=== PATIENT | male | born 1985 | race Caucasian/White ===

== ENCOUNTER 2023-10-09 12:49 | Emergency (ER) | payer MEDICAID, SELFPAY ==
[2023-10-09 13:08] VITALS: BP 133/76; PULSE 61; RESP 16; TEMP 36.6; O2SAT 98; BMI 22.2
[2023-10-09 14:00] VITALS: BP 118/78; PULSE 57; RESP 18; TEMP 36.5; O2SAT 99
[2023-10-09] MEDS: Diphth,Pertus(ACell),Tet Adult 0.5 ML SYRINGE IM (15:07)
[2023-10-09] MEDS: Lidocaine HCl 1 % MPF 5 ML VIAL INFILTRATI (15:08)
--- NOTE | 2023-10-09 15:39 | ED_ITS ---
HPI - Wound/Laceration General Chief Complaint: Wound/Laceration Stated Complaint: Finger lac Time Seen by Provider: 10/09/23 13:14 Source: patient and RN notes reviewed Mode of arrival: ambulatory Limitations: no limitations History of Present Illness ED Provider: Judith Munguia PA-C HPI narrative: This is a 38-year-old male, with no known medical problems, who presents emergency department with complaints of laceration to his right thumb which occurred today. 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 He does report slight numbness and tingling to the tip of his thumb. He is left-handed. Denies taking any medications prior to his arrival. He is unsure when his last tetanus shot was administered to him. No other complaints or concerns at this time. Onset (ago): minute(s) Place: home Patient tetanus UTD: No Context: accidental Associated symptoms: pain and loss of feeling/numbness Related Data Previous Rx's ?Medication ?Instructions ?Recorded cephalexin 500 mg capsule 500 mg PO QID 5 days #20 caps 10/09/23 Allergies Allergy/AdvReac Type Severity Reaction Status Date / Time No Known Allergies Allergy Verified 10/09/23 13:11 [No Known Allergies*] Review of Systems Review of Systems: Yes all other systems are reviewed and are negative Constitutional: Constitutional: Reports as per [facility] Social History Social History Advance Directives: No Advance Directives Information Provided: No Physical Exam Vital Signs: Vital Signs: Last Vital Signs Temp 97.7 F 10/09/23 15:44 Pulse 57 10/09/23 15:44 Resp 18 10/09/23 15:44 BP 118/78 10/09/23 15:44 Pulse Ox 99 10/09/23 15:44 O2 Del Method Room Air 10/09/23 15:44 BMI result Body Mass Index 22.2 Const: General: cooperative, comfortable and no acute distress Orientation/consciousness: patient oriented x3 Limitations: no limitations HEENT: Head: Yes normal to inspection, Yes normocephalic and Yes atraumatic Ears: hearing grossly normal bilaterally General nose exam: Normal external nose present Face and sinus: Yes normal facial exam Mouth: Normal oral and palatal mucosa present, oropharynx normal and moist mucous membranes Throat: Yes posterior oropharynx normal Eyes: General: appearance normal, both eyes and all related structures Eyelids: Yes eyelids normal Conjunctivae: conjunctivae normal Sclerae: sclerae normal Pupils: Equal, round and reactive pupils present EOM: EOMs intact bilaterally Neck: Neck: Yes normal visual inspection, Yes full ROM and Yes no lymphadenopathy Lymphatic: no lymphadenopathy noted Chest: Chest palpation & inspection: normal inspection of the chest Resp: Effort & Inspection: normal respiratory effort and able to speak in complete sentences Auscultation: clear to auscultation bilaterally, no crackles, no rales, no rhonchi and no wheezes Cardio: Rate: regular rate Rhythm: regular rhythm Heart sounds: S1 normal heart sound present and S2 normal heart sound present GI: Inspection: Yes normal to inspection Skin: General skin exam: no rashes or lesions noted Trauma: no lacerations or abrasions Wounds: no wounds Neuro: General: patient oriented x3 and moves all extremities Cranial nerves: Yes Equal, round and reactive pupils present Extrem: Other: Right thumb, palmar aspect there is a 2cm partial thickness laceration noted, no active bleeding. No tendon involvement. Full range of motion of the digit, able to flex and extend as well as oppose thumb to all digits without difficulty. Strong radial pulse. General: Yes normal to inspection Right upper extremity: normal to inspection Left upper extremity: normal to inspection Right lower extremity: normal to inspection Left lower extremity: normal to inspection Medications Administered Discontinued Medications Generic Name Dose Route Start Last Admin Trade Name Freq PRN Reason Stop Dose Admin Bacitracin 1 appl 10/09/23 15:38 10/09/23 15:43 Bacitracin Oint 0.9 Gm Packet TOPICAL 10/09/23 15:39 1 appl ONCE ONE Administration Protocol Diphtheria/Tetanus/Acell Pertussis 0.5 ml 10/09/23 14:49 10/09/23 15:07 Diphth,Pertus(Acell),Tet Adult 0.5 Ml Syringe IM 10/09/23 14:50 0.5 ml .ONCE ONE Administration Lidocaine HCl 5 ml 10/09/23 14:49 10/09/23 15:08 Lidocaine Hcl 1 % Mpf 5 Ml Vial INFILTRATI 10/09/23 14:50 5 ml ONCE ONE Administration Medical Decision Making Medical Decision Making MDM Narrative: This is a 38-year-old male, with no known medical problems, who presents emergency department for evaluation of laceration to his right thumb. This was an accidental injury and was at home. On arrival, patient has a 2 cm partial- thickness laceration requiring suture repair. His tetanus is not up-to-date. He has some numbness and tingling to the tip of his finger however sensation is intact. Will require orthopedic follow-up for further evaluation. Digit was repaired using 450 nylon sutures, see procedure note for detail. Updated tetanus in department. Patient tolerated procedure well without any complications or concerns. Discharged on Keflex and given return precautions. Vital signs within normal limits. Patient stable for discharge Differential Diagnosis Differential Diagnoses: The differential diagnosis associated with the presentation includes Laceration, foreign body, abrasion, contusion Procedures Laceration Laceration 1: Site: hand Side (If applicable): right Size (cm): 2 Description: linear Depth: simple, single layer Local Anesthetic: lidocaine 1% Amount of anesthesia used (mL): 2 Pre-repair: wound explored, irrigated extensively and deep structures intact Skin layer closed with: nylon Size (cm): 5-0 Number of sutures: 4 Technique: simple, interrupted Discharge Plan Discharge Clinical Impression: Laceration Patient Disposition: Home, Self-Care Instructions: Care For Your Stitches (ED), Laceration (ED) Additional Instructions: Your seen in the emergency department after accidentally lacerating your right thumb. We placed 4 stitches in your right thumb. Please have these stitches removed in 10-14 days. You may return here or follow-up with your primary care physician. Take prescribed antibiotic as directed. Keep wound clean and dry. Change dressing daily. If dressing becomes saturated, please remove and r eapply. We updated your tetanus vaccination in the department today. If any new or worsening symptoms occur including but not limited to increased redness, swelling, drainage from the area, please return for re-evaluation. Because you were complaining of some numbness and tingling to the top of your thumb, please follow-up with orthopedics. Call to make an appointment. Prescriptions: New cephalexin 500 mg capsule 500 mg PO QID 5 Days Qty: 20 0RF Referrals: [facility] [place] [facility] [Provider Group] Interventions: ED Discharge Assessment Last Done: 10/09/23 15:44 Discharge Date/Time: 10/09/23 15:54 Print Language: Haitian
[2023-10-09] MEDS: Bacitracin Oint 0.9 GM PACKET 1 APPL TOPICAL (15:43)
--- NOTE | 2023-10-09 15:43 | PC.NURSE ---
laceration closed with 4 sutures, dsd with bacitracin placed. plan for discharge
[2023-10-09 15:44] VITALS: BP 118/78; PULSE 57; RESP 18; TEMP 36.5; O2SAT 99
== END 2023-10-09 15:54 | disposition home or self-care (01) ==
PROVIDERS: Emergency Provider Emergency Medicine
DX: S61.011A Laceration without foreign body of right thumb without damage to nail, initial encounter (principal); M79.641 Pain in right hand; W29.3XXA Contact with powered garden and outdoor hand tools and machinery, initial encounter; Y93.H2 Activity, gardening and landscaping; Y92.007 Garden or yard of unspecified non-institutional (private) residence as the place of occurrence of the external cause; Y99.8 Other external cause status; Z23 Encounter for immunization
CPT/HCPCS: 12041; 90471; 90715; 99283; 99284

== ENCOUNTER 2024-04-22 00:56 | Emergency (ER) | payer MEDICAID, SELFPAY ==
--- NOTE | ~2024-04-22 | CT_ITS ---
EXAMINATION: CT ABDOMEN AND PELVIS WITHOUT CONTRAST CLINICAL INFORMATION: Left flank pain. COMPARISON: None available. TECHNIQUE: Multidetector volumetric imaging was performed from the superior aspect of the liver through the pubic symphysis. Sagittal and coronal reformatted images were obtained on the technologist's workstation. This CT examination was performed using dose optimization techniques as appropriate, variously including the following: *Automated exposure control *Adjustment of mA and/or kV according to patient size (this includes techniques or standardized protocols for targeted exams where dose is matched to indication/reason for exam; i.e. extremities or head) *Use of iterative reconstruction technique DLP: 429 mGy-cm FINDINGS: LUNG BASES: -Lung bases are clear bilaterally. No effusions. -Heart size is normal. -GE junction is normal. LIVER, GALLBLADDER, AND BILIARY TREE: The liver is normal in size, shape, and attenuation. No focal hepatic lesion or biliary ductal dilatation is present. The gallbladder is unremarkable with no evidence of radiopaque gallstones, gallbladder wall thickening, or obvious pericholecystic inflammatory changes. PANCREAS: Unremarkable. SPLEEN: Unremarkable. ADRENAL GLANDS: Unremarkable. KIDNEYS AND URETERS: -Right Kidney: There are 3 nonobstructing tiny 2-3 mm calculi in the mid to inferior pole. There is no hydronephrosis or mass. There is a cyst in the upper pole measuring 1.8 cm. Hyperattenuating renal pyramids may suggest medullary nephrocalcinosis. -Left Kidney: There are 2 large calculi within the left mid to inferior left kidney, both oval in shape. The more anteroinferior measures 1.4 x 1.0 cm coronal plane, the more superolateral posterior measures 1.6 x 1.2 cm coronal plane. There is minimal calyceal dilatation/minimal hydronephrosis. Hyperattenuating renal pyramids may suggest medullary nephrocalcinosis. Ureters: Nondilated and normal in course and caliber. No obstructing abnormalities. BLADDER: Somewhat decompressed but normal in appearance. GASTROINTESTINAL TRACT: The stomach, duodenum, and small bowel are normal in appearance. The appendix is unremarkable. There is mild diverticulosis of the sigmoid colon. Colon is otherwise normal. No rectal abnormality. ABDOMINAL WALL: -No significant hernia is appreciated. -No masses or abnormal lymph nodes. LYMPH NODES: Normal. VASCULAR: Unremarkable. PELVIC VISCERA: Unremarkable. OSSEOUS STRUCTURES: -No suspicious lytic or blastic bone lesions. No acute findings. CT/CT abdomen pelvis wo IV con IMPRESSION: 1. There are 2 large possibly minimally obstructing calculi in the left mid to lower kidney calyces, larger more superolateral in the kidney measuring 1.6 x 1.2 cm, and the smaller anterolateral inferior measuring 1.4 x 1.0 cm. There is minimal dilatation of the left renal calyces without gross hydronephrosis. 2. There are 3 nonobstructing calculi in the right kidney mid to inferior pole, measuring 3 mm maximally. 3. Echogenic renal pyramids bilaterally suggesting medullary nephrocalcinosis. Differential includes medullary sponge kidney, renal tubular acidosis type I, hypervitaminosis D, and hypercalcemic states such as hyperparathyroidism. Less common etiologies to consider include sarcoidosis and renal papillary necrosis. 4. Additional ancillary findings as discussed in the body of the report. Electronically signed by: Zenon Israel MD 04/22/2024 09:56 AM [facility]ATAN
[2024-04-22 01:08] VITALS: BP 139/92; PULSE 67; RESP 18; TEMP 36.4; O2SAT 96; BMI 22.9
[2024-04-22] MEDS: Ondansetron ODT 4 MG TAB.RAPDIS TRANSLINGU (01:16)
[2024-04-22 01:45] LABS: Basophils Absolute Auto 0.1 X10*3/uL (0.0-0.2); Basophils Percent Auto 0.4 % (0-2); Eosinophils Percent Auto 0.2 % (0-4); Hematocrit 48.2 % (42.0-52.0); Hemoglobin 17.8 g/dl (14.0-18.0); Imm Gran Abs Auto 0.04 X10*3/uL (0.00-0.03); Imm Gran Pct Auto 0.3 % (0.0-0.4); Lymphocytes Absolute Auto 2.1 X10*3/uL (1.2-4.9); Lymphocytes Percent Auto 16.7 % (20-40); MANUAL DIFF FLAG NO; Mean Corpuscular HGB Conc 36.9 g/dl (31.0-36.0); Mean Corpuscular Hemoglobin 33.5 pg (27.0-33.0); Mean Corpuscular Volume 90.6 fL (80.0-98.0); Mean Platelet Volume 9.3 fL (9.4-12.4); Monocytes Absolute Auto 0.8 X10*3/uL (0.1-1.2); Monocytes Percent Auto 6.4 % (2-11); Neutrophils Absolute Auto 9.6 x10*3/uL (2.0-8.3); Platelet Count 278 X10*3/uL (160-400); Red Blood Count 5.32 X10*6/uL (4.60-5.80); Red Cell Distribution Width 12.2 % (11.0-16.0); White Blood Count 12.7 X10*3/uL (4.8-10.8)
[2024-04-22 02:12] LABS: Alanine Aminotransferase 40 U/L (0-40); Albumin Level 5.1 g/dL (3.5-5.0); Anion Gap 16 (12-20); Aspartate Amino Transferase 30 U/L (5-37); Bilirubin Total 1.5 mg/dL (0.0-1.0); Blood Urea Nitrogen 23 mg/dL (9-16); Calcium 9.7 mg/dL (8.4-10.2); Carbon Dioxide 21 mmol/L (22-29); Chloride 104 mmol/L (96-108); Creatinine Clr Calc Pharmacy 72.3; Estimated Glomerular Filt Rate 59; Glucose Random 121 mg/dL (60-115); Potassium 4.2 mmol/L (3.3-5.1); Sodium 137 mmol/L (135-145); Total Protein 8.3 g/dL (6.5-8.0)
[2024-04-22 02:52] LABS: Alkaline Phosphatase 136 U/L (39-117)
[2024-04-22 05:33] LABS: Appearance Urine Cloudy; Color Urine Dark Yellow; Glucose Urine UA Negative (Negative); Leukocyte Esterase Urine Trace (Negative); Nitrite Urine Negative (Negative); PH 5.5 (5.0-9.0); Specific Gravity - Urine >= 1.030 (1.005-1.025); UMIC TRIGGER UACC YES; Urine Blood Large (3+) (Negative); Urine Ketones 15 mg/dL (Negative); Urine Protein 100 (2+) mg/dL (Neg-Trace)
[2024-04-22 05:43] LABS: Bacteria Urine None Seen (None Seen); Other Crystals Urine Present; RBC Urine >20 /HPF (0-2); UACC Culture Trigger YES; WBC Clumps Urine Present
[2024-04-22 06:59] VITALS: BP 130/86; PULSE 70; RESP 18; TEMP 36.9; O2SAT 97
[2024-04-22] MEDS: 0.9 % Sodium Chloride 1,000 ML 999 ML IV (07:35)
[2024-04-22] MEDS: ondansetron HCL 4 MG/2 ML VIAL IVPUSH (07:39)
[2024-04-22] MEDS: Ketorolac Tromethamine 30 MG/ML VIAL IVPUSH (07:41)
--- NOTE | 2024-04-22 07:42 | PC.NURSE ---
no active vomiting states he feels nausea and only bile is left after vomting. IV access gained and medicated as charted.
--- NOTE | 2024-04-22 07:56 | ED_ITS ---
HPI - Abdominal Pain General Chief Complaint: Abdominal Pain Stated Complaint: nauseous, abd pain Time Seen by Provider: 04/22/24 06:44 Source: patient and RN notes reviewed Mode of arrival: ambulatory Limitations: no limitations History of Present Illness ED Provider: Judith Munguia PA-C HPI narrative: This is a 38-year-old male, who has no medical problems, who presents emergency department with complaints of left-sided flank pain x3 days. Patient states that he noticed this pain over the last several days, he does report some nausea, and vomiting. He does report that he has had difficulty with urination, states that he has been having to go into the shower to help push his urine out. He denies having history of similar symptoms in the past. No history of kidney stones. He is not sexually active, denies chance of STI. Denies any fevers, chills, chest pain, shortness of breath, abdominal pain, diarrhea, bloody or black stool. No other complaints or concerns at this time. MD elicited complaint: flank pain Pertinent past history: kidney stones Onset (ago): day(s) Pain Consistency: constant Location: L flank Severity: moderate Quality: aching Radiation: none Migration to: no migration Exacerbating factors: nothing Relieving factors: nothing Associated symptoms: denies other symptoms Related Data Previous Rx's ?Medication ?Instructions ?Recorded cephalexin 500 mg capsule 500 mg PO QID 5 days #20 caps 10/09/23 ketorolac 10 mg tablet 10 mg PO Q6H 3 days #12 tabs 04/22/24 ondansetron 4 mg disintegrating 4 mg PO Q6H #14 tabs 04/22/24 tablet sulfamethoxazole 800 1 tab PO BID 7 days #14 tabs 04/22/24 mg-trimethoprim 160 mg tablet (Bactrim DS) Allergies Allergy/AdvReac Type Severity Reaction Status Date / Time No Known Allergies Allergy Verified 04/22/24 01:08 [No Known Allergies*] Review of Systems Review of Systems Yes all other systems are reviewed and are negative Constitutional: Reports as per [facility] Social History Social History Smoked in Last 30 Days: Yes Use of substances other than those prescribed or required for medical reasons: No Advance Directives: No Do you have a plan to hurt others: No Plan Physical Exam ED Vital Signs: Vital Signs - 24 hr 04/22/24 01:08 04/22/24 06:59 Temperature 97.6 F 98.4 F Pulse Rate 67 70 Respiratory Rate 18 18 Blood Pressure 139/92 H 130/86 Pulse Oximetry 96 97 Oxygen Delivery Method Room Air Room Air BMI result Body Mass Index 22.9 Const General: cooperative, comfortable and no acute distress Orientation/consciousness: patient oriented x3 Limitations: no limitations HENMT Head: Yes normal to inspection, Yes normocephalic and Yes atraumatic Ears: hearing grossly normal bilaterally General nose exam: Normal external nose present Face and sinus: Yes normal facial exam Mouth: Normal oral and palatal mucosa present, oropharynx normal and moist mucous membranes Throat: Yes posterior oropharynx normal Eyes General: appearance normal, both eyes and all related structures Eyelids: Yes eyelids normal Conjunctivae: conjunctivae normal Sclerae: sclerae normal Pupils: Equal, round and reactive pupils present EOM: EOMs intact bilaterally Neck Neck: Yes normal visual inspection, Yes full ROM and Yes no lymphadenopathy Lymphatic: no lymphadenopathy noted Chest Chest palpation & inspection: normal inspection of the chest Resp Effort & Inspection: normal respiratory effort and able to speak in complete sentences Auscultation: clear to auscultation bilaterally, no crackles, no rales, no rhonchi and no wheezes Cardio Rate: regular rate Rhythm: regular rhythm Heart sounds: S1 normal heart sound present and S2 normal heart sound present GI Other: Abdomen is soft, with mild tenderness palpation along the left flank. No rebound or guarding. Abdomen is soft Inspection: Yes normal to inspection Back/Spine/Pelvis Other: Left CVA tenderness. Skin General skin exam: no rashes or lesions noted Trauma: no lacerations or abrasions Wounds: no wounds Neuro General: patient oriented x3 and moves all extremities Cranial nerves: Yes Equal, round and reactive pupils present Extrem General: Yes normal to inspection Right upper extremity: normal to inspection Left upper extremity: normal to inspection Right lower extremity: normal to inspection Left lower extremity: normal to inspection Course Reevaluation(s) Reevaluation #1: Patient re-evaluated, feeling much better after receiving Toradol and Zofran. CT abdomen returns revealing 2 large possibly minimally obstructing calculi in the left mid lower kidney calyces, larger more superior lateral in the kidney measuring 1.6 x 1.2 cm in the smaller anterolateral inferior measuring 1.4 x 1. There is also 3 nonobstructing calculi in the right kidney. He also has echogenic renal pyramids bilaterally suggesting medullary nephrocalcinosis Time: 10:49 Reevaluation #2: Dr. Duke reviewed a CT scan, recommending Bactrim twice a day for the next 7 days. Discharged on Toradol, Zofran, Bactrim, advised to follow-up with urology has there is no urgent intervention is needed at this time. He understands and agrees with plan. He is comfortable, asymptomatic at this time. Given strict return precautions. He understands and agrees with plan. Stable for discharge Time: 12:58 Medical Decision Making Medical Decision Making [facility] Narrative: This is a 38-year-old male who presents emergency department with complaints of left flank pain. On arrival, vital signs within normal limits. He was not evaluated until 7:20 a.m. due to long ER wait times. Labs were obtained prior to my assessment, he has mild leukocytosis, chemistry revealing creatinine of 1.35, no previous for comparison. A BUN of 23, total bili 1.5, alk phos 136, total protein 8.3, albumin 5.1. Urine with protein, large blood, leuk esterases, and rbc's. This does appear to be contaminated. Given atraumatic left flank pain, symptoms may be concerning for nephrolithiasis. CT abdomen and pelvis was ordered to rule out obstructive pathology. Plan: Labs, UA, CT abdomen and pelvis Differential Diagnosis Differential Diagnoses: The differential diagnosis associated with the presentation includes Pyelonephritis, nephrolithiasis, mass, UTI Admission/Observation Consideration of admission/observation: Escalation of care including admission/observation considered Lab Data [facility] Lab Attestation statement: I reviewed the patient's lab results. See course comment 04/22/24 01:32 04/22/24 01:32 Labs: Lab Results 04/22/24 04/22/24 Range/Units 01:32 05:26 WBC 12.7 H (4.8-10.8) X10*3/uL RBC 5.32 (4.60-5.80) X10*6/uL Hgb 17.8 (14.0-18.0) g/dl Hct 48.2 (42.0-52.0) % MCV 90.6 (80.0-98.0) fL MCH 33.5 H (27.0-33.0) pg MCHC 36.9 H (31.0-36.0) g/dl RDW 12.2 (11.0-16.0) % Plt Count 278 (160-400) X10*3/uL MPV 9.3 L (9.4-12.4) fL Immature Gran % (Auto) 0.3 (0.0-0.4) % Neut % (Auto) 76.0 H (45-73) % Lymph % (Auto) 16.7 L (20-40) % Gilchrist % (Auto) 6.4 (2-11) % Eos % (Auto) 0.2 (0-4) % Baso % (Auto) 0.4 (0-2) % Lymph # (Auto) 2.1 (1.2-4.9) X10*3/uL Gilchrist # (Auto) 0.8 (0.1-1.2) X10*3/uL Eos # (Auto) 0.0 (0.0-0.4) X10*3/uL Baso # (Auto) 0.1 (0.0-0.2) X10*3/uL Abs Immat Gran (auto) 0.04 H (0.00-0.03) X10*3/uL Absolute Neuts (auto) 9.6 H (2.0-8.3) x10*3/uL Absolute Nucleated RBC 0.000 (0.0-0.012) X10*3/uL Nucleated RBC % (auto) 0.0 (0.0-0.2) /100WBC Sodium 137 (135-145) mmol/L Potassium 4.2 (3.3-5.1) mmol/L Chloride 104 (96-108) mmol/L Carbon Dioxide 21 L (22-29) mmol/L Anion Gap 16 (12-20) BUN 23 H (9-16) mg/dL Creatinine 1.35 (0.5-1.4) mg/dL Estim Creat Clear Calc 72.3 Estimated GFR 59 Random Glucose 121 H (60-115) mg/dL Calcium 9.7 (8.4-10.2) mg/dL Total Bilirubin 1.5 H (0.0-1.0) mg/dL AST 30 (5-37) U/L ALT 40 (0-40) U/L Alkaline Phosphatase 136 H (39-117) U/L Total Protein 8.3 H (6.5-8.0) g/dL Albumin 5.1 H (3.5-5.0) g/dL Urine Color Dark Yellow Urine Appearance Cloudy Urine pH 5.5 (5.0-9.0) Ur Specific [place] >= 1.030 H (1.005-1.025) Urine Protein 100 (2+) H (Neg-Trace) mg/dL Urine Glucose (UA) Negative (Negative) mg/dL Urine Ketones 15 (Negative) mg/dL Urine Blood Large (3+) H (Negative) Urine Nitrite Negative (Negative) Ur Leukocyte Esterase Trace H (Negative) Urine RBC >20 H (0-2) /HPF Urine WBC 11-20 H (0-5) /HPF Urine WBC Clumps Present Ur Squamous Epith Cells 6-10 (0-2) /HPF Other Crystals Present Urine Bacteria None Seen (None Seen) Hyaline Casts 6-10 (0-2) /LPF Radiology Impression Discussion of test interpretation with radiology: I have reviewed the radiologist's reading. Radiologist Impression: FINDINGS: LUNG BASES: -Lung bases are clear bilaterally. No effusions. -Heart size is normal. -GE junction is normal. LIVER, GALLBLADDER, AND BILIARY TREE: The liver is normal in size, shape, and attenuation. No focal hepatic lesion or biliary ductal dilatation is present. The gallbladder is unremarkable with no evidence of radiopaque gallstones, gallbladder wall thickening, or obvious pericholecystic inflammatory changes. PANCREAS: Unremarkable. SPLEEN: Unremarkable. ADRENAL GLANDS: Unremarkable. KIDNEYS AND URETERS: -Right Kidney: There are 3 nonobstructing tiny 2-3 mm calculi in the mid to inferior pole. There is no hydronephrosis or mass. There is a cyst in the upper pole measuring 1.8 cm. Hyperattenuating renal pyramids may suggest medullary nephrocalcinosis. -Left Kidney: There are 2 large calculi within the left mid to inferior left kidney, both oval in shape. The more anteroinferior measures 1.4 x 1.0 cm coronal plane, the more superolateral posterior measures 1.6 x 1.2 cm coronal plane. There is minimal calyceal dilatation/minimal hydronephrosis. Hyperattenuating renal pyramids may suggest medullary nephrocalcinosis. Ureters: Nondilated and normal in course and caliber. No obstructing abnormalities. BLADDER: Somewhat decompressed but normal in appearance. GASTROINTESTINAL TRACT: The stomach, duodenum, and small bowel are normal in appearance. The appendix is unremarkable. There is mild diverticulosis of the sigmoid colon. Colon is otherwise normal. No rectal abnormality. ABDOMINAL WALL: -No significant hernia is appreciated. -No masses or abnormal lymph nodes. LYMPH NODES: Normal. VASCULAR: Unremarkable. PELVIC VISCERA: Unremarkable. OSSEOUS STRUCTURES: -No suspicious lytic or blastic bone lesions. No acute findings. CT/CT abdomen pelvis wo IV con IMPRESSION: 1. There are 2 large possibly minimally obstructing calculi in the left mid to lower kidney calyces, larger more superolateral in the kidney measuring 1.6 x 1.2 cm, and the smaller anterolateral inferior measuring 1.4 x 1.0 cm. There is minimal dilatation of the left renal calyces without gross hydronephrosis. 2. There are 3 nonobstructing calculi in the right kidney mid to inferior pole, measuring 3 mm maximally. 3. Echogenic renal pyramids bilaterally suggesting medullary nephrocalcinosis. Differential includes medullary sponge kidney, renal tubular acidosis type I, hypervitaminosis D, and hypercalcemic states such as hyperparathyroidism. Less common etiologies to consider include sarcoidosis and renal papillary necrosis. 4. Additional ancillary findings as discussed in the body of the report. Electronically signed by: Zenon Israel MD 04/22/2024 09:56 AM [facility] Dictated By: Zenon Israel MD Medications Administered Discontinued Medications Generic Name Dose Route Start Last Admin Trade Name Freq PRN Reason Stop Dose Admin Sodium Chloride 1,000 mls @ 999 mls/hr 04/22/24 07:20 04/22/24 08:56 Ns IV 04/22/24 08:20 Infused .Q1H1M ONE Infusion Ketorolac Tromethamine 30 mg 04/22/24 07:19 04/22/24 07:41 Ketorolac Tromethamine 30 Mg/Ml Vial IVPUSH 04/22/24 07:20 30 mg ONCE ONE Administration Ondansetron HCl 4 mg 04/22/24 01:14 04/22/24 01:16 Ondansetron Odt 4 Mg Tab.Rapdis TRANSLINGU 04/22/24 01:15 4 mg ONCE ONE Administration Ondansetron HCl 4 mg 04/22/24 07:19 04/22/24 07:39 Ondansetron Hcl 4 Mg/2 Ml Vial IVPUSH 04/22/24 07:20 4 mg ONCE ONE Administration Discharge Plan Discharge Clinical Impression: Calculus of kidney Patient Disposition: Still a Patient Instructions: Kidney Stones (ED) Additional Instructions: You were seen in the emergency department due to left flank pain. Your CT scan does show evidence of kidney stones as well as evidence of calcium within your kidneys. Given the location, no urgent intervention is required however you need to have close follow-up with Urology. Call today to make an appointment. We are putting you on an antibiotic, please take as prescribed. Finish the entire course even if your symptoms improve. I am also giving you a medication for nausea, take only as needed. I am also giving you a medication to help with pain, Toradol, this is a medication that you received in the emergency department today. If any new or worsening symptoms occur including but not limited to high fevers, severe rash, severe abdominal pain, chest pain, shortness for breath, inability to urinate, please seek emergent care. Do not mix Toradol with any NSAID medications like naproxen and ibuprofen or aspirin. You may take Tylenol as needed for pain in addition to the Toradol. Take Toradol every 4-6 hours, do not exceed 40 mg in 24 hours (40mg) Prescriptions: New sulfamethoxazole-trimethoprim [Bactrim DS] 800-160 mg tablet 1 tab PO BID 7 Days Qty: 14 0RF ondansetron 4 mg tablet,disintegrating 4 mg PO Q6H Qty: 14 0RF ketorolac 10 mg tablet 10 mg PO Q6H 3 Days Qty: 12 0RF No Action cephalexin 500 mg capsule 500 mg PO QID 5 Days Qty: 20 0RF Referrals: [facility] [place] [facility] [Provider Group] Stand Alone Forms: Work/School Release Print Language: Icelandic
[2024-04-22 13:57] VITALS: BP 130/86; PULSE 70; RESP 18; TEMP 36.9; O2SAT 97
== END 2024-04-22 13:57 | disposition home or self-care (01) ==
PROVIDERS: Emergency Provider Emergency Medicine; PCP Internal Medicine
DX: N20.0 Calculus of kidney (principal); R10.2 Pelvic and perineal pain; R11.2 Nausea with vomiting, unspecified; R33.9 Retention of urine, unspecified; D72.829 Elevated white blood cell count, unspecified
CPT/HCPCS: 36415; 74176; 80053; 81001; 85025; 87086; 96361; 96374; 96375; 99285; J1885; J2405

== ENCOUNTER → 2024-04-22 07:19 | Outpatient (BNV) | payer MEDICAID, SELFPAY | PROVIDERS: Emergency Provider Emergency Medicine; PCP Internal Medicine; Visit Provider Radiology Diagnostic Radiology | DX: R10.9 Unspecified abdominal pain (principal) | CPT/HCPCS: 74176 ==

== ENCOUNTER 2024-04-28 10:18 | Outpatient (AMB) | payer MEDICAID, SELFPAY ==
--- NOTE | 2024-04-27 20:09 | MHC.OFFVIS ---
Intake Visit Reasons: Kidney Stones Intake Note: Patient is present for KIDNEY STONES Urology Medication:NONE Antibiotic Allergy:NONE Blood Thinner:NONE Machine Set Up Required: No Allergies No Known Allergies [No Known Allergies*] Allergy (Verified 04/28/24 10:24) Medication List - Last Reconciled 04/28/24 by Jazmin Schwartz MD ketorolac 10 mg PO Q6H 3 days ondansetron 4 mg PO Q6H sulfamethoxazole-trimethoprim 800-160 mg (Bactrim DS) 1 tab PO BID 7 days HPI Comments Details: Rod Abdalla is a 38 y/o male who was in the ED with left flank pain. CT imaging was notable for large left renal stone punctate right renal stones. The patient was discharged on Bactrim for empirical treatment of pyelonephritis. Today he states the pain is resolved. I have discussed treatment options for kidney stones including ureteroscopy with laser lithotripsy, percutaneous nephrolithotomy and ESWL. Because the stone is large ESWL will be a stage procedure. The patient is here with his mother, Anna Marie, they agreed to start with ESWL. Also discussed metabolic workup to include 24 hour urine collection. Discussed the importance of hydration, increasing water intake. CTAP 04/22/24-- b/L kidney stones Review of Systems Const All systems reviewed & are unremarkable except as noted in HPI and below Reports no additional complaints Eyes Reports no additional complaints ENT Reports no additional complaints Card Reports no additional complaints Resp Reports no additional complaints GI Reports no additional complaints Reports as per HPI Musc Reports no additional complaints Skin/Breast Reports system reviewed and no additional complaints, except as documented Neuro Reports no additional complaints Psych Reports no additional complaints Endo Reports no additional complaints Nick/Lymph Reports no additional complaints Aller/Immun Reports no additional complaints Physical Exam Const General: healthy appearing, no acute distress and well developed Orientation/consciousness: patient oriented x3 HEENT Head: Yes normocephalic and Yes atraumatic Eyes Conjunctivae: conjunctivae normal Neck Neck: Yes normal visual inspection Chest Chest palpation & inspection: normal inspection of the chest Resp Effort & Inspection: normal respiratory effort Cardio Rate: regular rate GI Inspection: Yes normal to inspection Neuro General: patient oriented x3 Extrem General: No pedal edema Psych Appearance: grossly normal Affect: normal affect Results AMB Urinalysis, Automated UA Leukoctes 0 Zohreh/uL Last Edit by AUDIE Murphy on 04/28/24 10:40 UA Nitrite Negative Last Edit by Fátima Francis [facility] on 04/28/24 10:40 UA Urobilinogen 0.2 mg/dL Last Edit by [facility] on 04/28/24 10:40 UA Protein 15 mg/dL Last Edit by Fátima Francis [facility] on 04/28/24 10:40 UA pH 6.5 Last Edit by Fátima Francis [facility] on 04/28/24 10:40 UA Blood 25 Nico/uL Last Edit by Fátima Francis [facility] on 04/28/24 10:40 UA Specific [place] 1.020 Last Edit by Fátima Francis [facility] on 04/28/24 10:40 UA Ketone Negative Last Edit by Ftáima Francis [facility] on 04/28/24 10:40 UA Bilirubin 0 mg/dL Last Edit by Fátima Francis [facility] on 04/28/24 10:40 UA Glucose 0 mg/dL Last Edit by Fátima Francis [facility] on 04/28/24 10:40 Results Reviewed Results Reviewed: Date of Service: 04/22/24 CT ABDOMEN AND PELVIS WITHOUT CONTRAST CLINICAL INFORMATION: Left flank pain. COMPARISON: None available. TECHNIQUE: Multidetector volumetric imaging was performed from the superior aspect of the liver through the pubic symphysis. Sagittal and coronal reformatted images were obtained on the technologist's workstation. This CT examination was performed using dose optimization techniques as appropriate, variously including the following: *Automated exposure control *Adjustment of mA and/or kV according to patient size (this includes techniques or standardized protocols for targeted exams where dose is matched to indication/reason for exam; i.e. extremities or head) *Use of iterative reconstruction technique DLP: 429 mGy-cm FINDINGS: LUNG BASES: -Lung bases are clear bilaterally. No effusions. -Heart size is normal. -GE junction is normal. LIVER, GALLBLADDER, AND BILIARY TREE: The liver is normal in size, shape, and attenuation. No focal hepatic lesion or biliary ductal dilatation is present. The gallbladder is unremarkable with no evidence of radiopaque gallstones, gallbladder wall thickening, or obvious pericholecystic inflammatory changes. PANCREAS: Unremarkable. SPLEEN: Unremarkable. ADRENAL GLANDS: Unremarkable. KIDNEYS AND URETERS: -Right Kidney: There are 3 nonobstructing tiny 2-3 mm calculi in the mid to inferior pole. There is no hydronephrosis or mass. There is a cyst in the upper pole measuring 1.8 cm. Hyperattenuating renal pyramids may suggest medullary nephrocalcinosis. -Left Kidney: There are 2 large calculi within the left mid to inferior left kidney, both oval in shape. The more anteroinferior measures 1.4 x 1.0 cm coronal plane, the more superolateral posterior measures 1.6 x 1.2 cm coronal plane. There is minimal calyceal dilatation/minimal hydronephrosis. Hyperattenuating renal pyramids may suggest medullary nephrocalcinosis. Ureters: Nondilated and normal in course and caliber. No obstructing abnormalities. BLADDER: Somewhat decompressed but normal in appearance. GASTROINTESTINAL TRACT: The stomach, duodenum, and small bowel are normal in appearance. The appendix is unremarkable. There is mild diverticulosis of the sigmoid colon. Colon is otherwise normal. No rectal abnormality. ABDOMINAL WALL: -No significant hernia is appreciated. -No masses or abnormal lymph nodes. LYMPH NODES: Normal. VASCULAR: Unremarkable. PELVIC VISCERA: Unremarkable. OSSEOUS STRUCTURES: -No suspicious lytic or blastic bone lesions. No acute findings. IMPRESSION: 1. There are 2 large possibly minimally obstructing calculi in the left mid to lower kidney calyces, larger more superolateral in the kidney measuring 1.6 x 1.2 cm, and the smaller anterolateral inferior measuring 1.4 x 1.0 cm. There is minimal dilatation of the left renal calyces without gross hydronephrosis. 2. There are 3 nonobstructing calculi in the right kidney mid to inferior pole, measuring 3 mm maximally. 3. Echogenic renal pyramids bilaterally Assessment & Plan Assessment & Plan (1) Bilateral kidney stones: Code(s): N20.0 - Calculus of kidney Category: Medical Plan Left ESWL. Also discussed metabolic workup to include 24 hour urine collection. Orders: Orders AMB Urinalysis Automated Today Z13.9 - Encounter for screening, unspecified Patient Instructions: The patient had an opportunity to ask questions regarding treatment plan. The patient expressed understanding and agreement with the above treatment plan. The patient is aware they should contact our office by phone for worsening of their current condition or the appearance of new symptoms. Compliance is encouraged with any medications and followup testing that is ordered. It is a privilege to be allowed the opportunity to participate in the urologic care of your patient. If you have any questions or concerns regarding treatment for the above conditions please do not hesitate to contact me. The office telephone contact is [phone]. This note is constructed in part using voice recognition software. While every effort has been made to ensure accuracy ornamental machine operator errors may have been included. Yours sincerely, Jazmin Schwartz MD Coding Level of Care Code New Pt Level 4 (81276) Diagnoses Bilateral kidney stones N20.0
== END 2024-04-28 11:05 | disposition home or self-care (01) ==
PROVIDERS: PCP Internal Medicine; Visit Provider Urology
DX: N20.0 Calculus of kidney (principal); Z13.9 Encounter for screening, unspecified
CPT/HCPCS: 99204

== ENCOUNTER → 2024-04-28 10:18 | Outpatient (BNVA) | payer MEDICAID, SELFPAY | PROVIDERS: PCP Internal Medicine; Visit Provider Urology | DX: N20.0 Calculus of kidney (principal) | CPT/HCPCS: 81003; 99202 ==

== ENCOUNTER 2024-06-30 10:01 | Outpatient (REF) | payer MEDICAID, SELFPAY ==
--- OUTSIDE RECORDS SUMMARY | 2024-06-30 11:40 | XMS_ITS | Encounter Summary ---
Author Organization [employer] Address [address] [address] [place] [address] Care Team Providers Care Mechanical Design Engineer Facilities Name Role Phone Joan Barreto MD Primary Care Provider + Reason for Visit * Reason Comments New patient appointment Encounter Details Date Type Department Care Team ([facility] st Contact Info) Description 06/30/2024 9:15 AM EST Office Visit [facility] [address] [place], [place] [phone] Joan Barreto MD [address] [place], [place] [phone] Generalized anxiety disorder (Primary Dx); Panic disorder with agoraphobia; Elevated blood pressure reading Social History Tobacco Use Types Packs/Day Years Used Date Smoking Tobacco: Every Day Cigarettes 0.5 21.2 Started: 2003 Smokeless Tobacco: Never Alcohol Use Standard Drinks/Week Comments Not Currently 0 (1 standard drink = 0.6 oz pure alcohol) Hx heavy drinking before 21 yo then social drinking 1-2/y Housing Stability Answer Date Recorded What is your housing situation today? I have morales eugene 06/30/[address] you li ve. Do you have problems with any of the following? None of the above 06/30/2024 Food Insecurity Answer Date Recorded Within the past 12 months, y ou worried that your food would run out before you got money to buy more: Never True 06/30/2024 Within the past 12 months,th e food you bought just didn't last and you didn't have enough money to get more: Never True 09/2024 Transportation Answer Date Recorded In the past 12 months, has l ack of transportation kept you from medical appts, meetings, work or from getting things needed for daily living? No 06/30/2024 Utilities Answer Date Recorded In the past 12 months, has t he electric, gas, oil or water company threatened to shut off services in your home? No 06/30/2024 Depression Answer Date Recorded Patient Health Questionnaire-2 Score 0 06/30/2024 Internet Access Answer Date Recorded Internet Access Q1 No 06/30/2024 Internet Access Q2 I do not want or need it 09/2024 Education Answer Date Recorded What is the highest level of school you have completed or the highest degree you have received? GED or equivalent Sex and Gender Information Value Date Recorded Sex Assigned at Male 02/24/2022 10:30 AM EDT Legal Sex Male 10:30 AM EDT Gender Identity Other 02/24/2022 10:30 AM EDT Sexual Orientation Something else 02/24/2022 10 :30 AM EDT documented as of this encounter Last Filed Vital Signs Vital Sign Reading Time Taken Comments Blood Pressure 143/83 06/30/2024 9:24 AM EST Pulse 89 06/30/2024 9:24 AM EST Temperature 36.3 ??C (97.4 ??F) 06/30/2024 9:24 AM ES T Respiratory Rate 12 06/30/2024 9:24 AM EST Oxygen Saturation 97% 06/30/2024 9:24 AM EST Inhaled Oxygen Concentration - - Weight 69.6 kg (153 lb 6 oz) 06/30/2024 9:24 AM EST Height 172.7 cm (5' 8 ) 06/30/2024 9:24 AM EST Body Mass Index 23.32 06/30/2024 9:24 AM EST documented in this encounter Plan of Treatment Upcoming Encounters Date Type Department Care Team (Late st Contact Info) Description 09/09/2024 11:30 AM EDT Office Visit [facility] [address] [place] [phone] Joan Barreto MD [address] [place], [place] [phone] Scheduled Orders Name Type Priority Associated Diagnoses Orde r Schedule Comprehensive Metabolic Panel Lab Routine Elevated blood pressure reading Expected: 06/30/2024 (Approximate), Expires: 06/30/2025 HIV-1/2 Antigen and Antibodies, Fourth Generation, with Reflexes Lab Routine Generalized anxiety disorder Panic disorder with agoraphobia Expected: 06/30/2024 (Approximate), Expires: 06/30/2025 Lipid Panel with Reflex to Direct LDL Lab Routine Elevated blood pressure reading Expected: 06/30/2024 (Approximate), Expires: 06/30/2025 Hepatitis Panel, General Lab Routine Panic disorder with agoraphobia Expected: 06/30/2024 (Approximate), Expires: 06/30/2025 TSH with Reflex to Free T4 Lab Routine Panic disorder with agoraphobia Expected: 06/30/2024 (Approximate), Expires: 06/30/2025 T-SPOT??.TB Lab Routine Elevated blood pressure reading Expected: 06/30/2024 (Approximate), Expires: 06/30/2025 Syphilis Screen Lab Routine Panic disorder with agoraphobia Elevated blood pressure reading Expected: 06/30/2024 (Approximate), Expires: 06/30/2025 CBC auto differential Lab Routine Elevated blood pressure reading Expected: 06/30/2024 (Approximate), Expires: 06/30/2025 Vitamin B12/Folate, Serum Panel Lab Routine Panic disorder with agoraphobia Expected: 06/30/2024, Expires: 06/30/2025 documented as of this encounter Visit Diagnoses Diagnosis Generalized anxiety disorder- Primary Panic disorder with agoraphobia Agoraphobia with panic disorder Elevated blood pressure reading Elevated blood pressure reading without diagnosis of hypertension documented in this encounter Care Teams Mechanical Design Engineer Facilities Relationship Specialty Start Date End Date Joan Barreto MD [address] [place] [phone] PCP - General Internal Medicine 06/30/24 documented as of this encounter
--- OUTSIDE RECORDS SUMMARY | 2024-06-30 11:40 | XMS_ITS | Encounter Summary ---
Author Organization [employer] [facility] Address [address] [place] [address] [address] [place] [address] Care Team Providers Care Website Programmer Name Role Phone Unavailable Primary Care Provider Unavailabl e Reason for Visit * Reason Onset Date Comments Chart prep 06/28/2024 Encounter Details Date Type Department Care Team (Late st Contact Info) Description 06/28/[address] [phone] Evelyn Davenport [place] Chart prep Social History Tobacco Use Types Packs/Day Years Used Date Smoking Tobacco: Every Day Cigarettes 0.5 21.2 Started: 2003 Smokeless Tobacco: Never Education Answer Date Recorded What is the [...] AM EDT documented as of this encounter Miscellaneous Notes * Telephone Encounter - Evelyn Davenport MA - 06/28/2024 9:23 AM EST Chart Prep Labs: done Images: done Vaccines due: yes Referrals: N/A Screenings: N/A Overdue care gaps: SDOH, PHQ-9 documented in this encounter Plan of Treatment Upcoming Encounters Date Type Department Care Team (Late st Contact Info) Description 09/09/2024 11:30 AM EDT Office Visit [facility] [address] [place] [address] Joan Barreto MD [address] [place], [place] [phone] documented as of this encounter Visit Diagnoses Not on filedocumented in this encounter
--- OUTSIDE RECORDS SUMMARY | 2024-06-30 11:41 | XMS_ITS | Encounter Summary ---
Author Organization [employer] Address [address] [place] [address] Care Team Providers Care Brass Instrument Repair Technician Name Role Phone Joan Barreto MD Primary Care Provider + Encounter Details Date Type Department Care Team (Latest Contact Info) Description 06/30/2024 Travel Social History Tobacco Use Types Packs/Day Years [...] AM EDT documented as of this encounter Plan of Treatment Upcoming Encounters Date Type Department Care Team (Late st Contact Info) Description 09/09/2024 11:30 AM EDT Office Visit [facility] [address] [place], [place] [phone] Joan Barreto MD [address] [place] [phone] documented as of this encounter Visit Diagnoses Not on filedocumented in this encounter Care Teams Brass Instrument Repair Technician Relationship Specialty Start Date End Date Joan Barreto MD [address] [place] [phone] PCP - General Internal Medicine 06/30/24 documented as of this encounter
--- OUTSIDE RECORDS SUMMARY | 2024-06-30 11:41 | XMS_ITS | Clinical Summary ---
Author Organization [employer] Address [address] [place] [address] [address] [place] [address] Care Team Providers Care Chucking And Sawing Machine Operator Name Role Phone Joan Barreto MD Primary Care Provider + Allergies Active Allergy Reactions Criticality Noted Date [...] Encounters Date Type Department Care Team Description 06/30/2024 9:15 AM EST Office Visit [facility] [address] [place] [phone] Joan Barreto MD Generalized anxiety disorder (Primary Dx); Panic disorder with agoraphobia; Elevated blood pressure reading 06/30/2024 Travel 06/28/2024 Telephone [facility] [address] [place] [phone] Evelyn Davenport MA Chart prep 04/22/2024 Orders Only GENERIC EXTERNAL DATA DEPARTMENT Provider, Generic External Data 04/19/[address] [phone] Joan Barreto MD New pt appt from Last 3 Months Immunizations Name Administration Dates Next Due Influenza injectable quadrivalent preservative f ree 04/23/2020 Tdap 10/09/2023 Family History Medical History Relation Name Comments Seizures Brother No Known Problems Father Cerebral aneurysm Mother Relation Name Status Comments Brother Father Mother Social History Tobacco Use Types Packs/Day Years Used Date Smoking Tobacco: Every Day Cigarettes 0.5 21.2 Started: 2003 Smokeless Tobacco: Never Tobacco Cessation:Ready to Q uit: Not Asked; Counseling Given: Not Answered Alcohol Use Standard Drinks/Week Comments Not Currently [...] Mass Index 23.32 06/30/2024 9:24 AM EST Plan of Treatment Upcoming Encounters Date Type Department Care Team (Late st Contact Info) Description 09/09/2024 11:30 AM EDT Office Visit [facility] [address] [place], [place] [phone] Joan Barreto MD [address] [place] [address] Health Maintenance Due Date Last Done Comments HIV Screening 1986 Lipid Panel 1986 Alcohol/Substance Use Screening 1998 Family Planning (PISQ) 2001 Hepatitis C Screening 2004 Hepatitis A Vaccines (1 of 2 - Risk 2-dose series) 2005 Hepatitis B Vaccines (1 of 3 - 19+ 3-dose series) 2005 Pneumococcal Vaccine: Pediatrics (0 to 5 Years) and At-Risk Patients (6 to 49) Years) (1 of 2 - PCV) 2005 COVID-19 Vaccine ( - 2023-2 5 season) 2023 12/19/2021, 01/09/2021, 12/19/2020 Influenza Vaccine (#1) 2023 04/23/2020 Depression Screening 06/30/2025 06/30/2024, 06/30/2024 SDOH Screening 06/30/2025 06/30/2024 Tobacco Screening 06/30/2025 06/30/2024 DTaP/Tdap/Td Vaccines (2 - T d or [...] EST Narrative 04/22/2024 9:59 AM EST ? [facility] ?[address] ?[place] [address] ? CT Scan Report ? Signed ? Patient: Rod,Rm ?MR#: [id number] ? : 1985 ?Acct:[id number] ? Age/Sex: 38 / M ?ADM Date: 12/27/24 ? Loc: HO.ED ? Attending Dr: ? Ordering Physician: Judith Munguia ?? Date of Service: 04/22/24 ?? Procedure(s): CT abdomen pelvis wo IV con ?? Accession Number(s): [id number] ? cc: Joan Barreto MD; Judith Munguia ? Report Number: ?? [id number]: Total DLP = ??455.00 mGy-cm ?? EXAMINATION: [...] DD/ 0719 ? TD/TT: 04/22/24 0826 ? Pharmacy Innovation Assistant: ? Procedure Note Donotuseinterpreter, Image - 04/22/[address] [address] [address] Scan Report Signed Patient: Jayson Velasco#: [id number] : 1985Acct:[id number] Age/Sex: 38 / MADM Date: 04/22/24 Loc: HO.ED Attending Dr: Ordering Physician: Judith Munguia Date of Service: 04/22/24 Procedure(s): CT abdomen pelvis wo IV con Accession Number(s): [id number] cc: Joan Barreto MD; Judith Munguia Report Number: [id number]: Total DLP = 455.00 mGy-cm EXAMINATION: CT [...] by: Zenon Israel MD 04/22/2024 09:56 AM [facility] Dictated By: Zenon Israel MD Signed By: <Electronically signed by Zenon Israel MD in OV> 04/22/24 0956 DD/ 0719 TD/TT: 04/22/24 08 Pharmacy Innovation Assistant: [facility] External Provider IMG CT PROCEDURES Edited Result - Final * (ABNORMAL) Urinalysis, Complete, with Reflex to Culture (04/22/2024 5:26 AM EST) Color Urine Dark Yellow [facility] Appearance Urine Cloudy [facility] PH 5.5 5.0 - 9.0 [facility] Glucose Urine UA Negative Negative mg/dL [facility] Urine Blood Large (3+)(A) Negative [facility] Specific [place] - Urine >=1.030(H) 1.005 - 1.025 [facility] Urine Protein 100 (2+)(A) Neg-Trace mg/dL [facility] Urine Ketones 15 Negative mg/dL [facility] Nitrite Urine Negative Negative [facility] Leukocyte Esterase Urine Trace(A) Negative [facility] RBC Urine >20(A) 0 - 2 /HPF [facility] Urine WBC 11-20(A) 0 - 5 /HPF [facility] WBC CLUMPS, UR Present [facility] Urine Squamous Epithelial Cell 6-10 0 - 2 /HPF [facility] Other Crystals Urine Present [facility] Urine Bacteria None Seen None Seen [facility] Hyaline Casts, Urine 6-10 0 - 2 /LPF [facility] 04/22/2024 5:26 AM EST 04/22/2024 5:31 AM EST Narrative [facility] - 04/22/2024 5:43 AM EST Urine, Clean Catch Generic External Data Provider LAB URINE ORDERAB LES Final Result [facility] [address] [place] [address] [phone] * (ABNORMAL) CBC auto differential (04/22/2024 1:32 AM EST) White Blood Count 12.7(H) 4.8 - 10.8 X10*3/uL [facility] Red Blood Count 5.32 4.60 - 5.80 X10*6/uL [facility] Hemoglobin 17.8 14.0 - 18.0 g/dl [facility] Hematocrit 48.2 42.0 - 52.0 % [facility] Mean Corpuscular Volume 90.6 80.0 - 98.0 fL [facility] Mean Corpuscular Hemoglobin 33.5(H) 27.0 - 33.0 pg [facility] Mean Corpuscular HGB Conc 36.9(H) 31.0 - 36.0 g/dl [facility] Red Cell Distribution Width 12.2 11.0 - 16.0 % [facility] Platelet Count 278 160 - 400 X10*3/uL [facility] Mean Platelet Volume 9.3(L) 9.4 - 12.4 fL [facility] Neutrophils Percent Auto 76.0(H) 45 - 73 % [facility] Imm Gran Pct Auto 0.3 0.0 - 0.4 % [facility] Lymphocytes Percent Auto 16.7(L) 20 - 40 % [facility] Monocytes Percent Auto 6.4 2 - 11 % [facility] Eosinophils Percent Auto 0.2 0 - 4 % [facility] Basophils Percent Auto 0.4 0 - 2 % [facility] NRBC Pct Auto 0.0 0.0 - 0.2 /100WBC [facility] Neutrophils Absolute Auto 9.6(H) 2.0 - 8.3 x10*3/uL [facility] Imm Gran Abs Auto 0.04(H) 0.00 - 0.03 X10*3/uL [facility] Lymphocytes Absolute Auto 2.1 1.2 - 4.9 X10*3/uL [facility] Monocytes Absolute Auto 0.8 0.1 - 1.2 X10*3/uL [facility] Eosinophils Absolute Auto 0.0 0.0 - 0.4 X10*3/uL [facility] Basophils Absolute Auto 0.1 0.0 - 0.2 X10*3/uL [facility] NRBC Abs Auto 0.000 0.0 - 0.012 X10*3/uL [facility] 04/22/2024 1:32 AM EST 04/22/2024 1:51 AM EST us Generic External Data Provider LAB BLOOD ORDERAB LES Final Result [facility] [address] [place], [place] [phone] * (ABNORMAL) Comprehensive Metabolic Panel (04/22/2024 1:32 AM EST) Sodium 137 135 - 145 mmol/L [facility] Potassium 4.2 3.3 - 5.1 mmol/L [facility] Chloride 104 96 - 108 mmol/L [facility] Carbon Dioxide 21(L) 22 - 29 mmol/L [facility] Anion Gap 16 12 - 20 [facility] Urea Nitrogen (BUN) 23(H) 9 - 16 mg/dL [facility] Creatinine, Serum 1.35 0.5 - 1.4 mg/dL [facility] Creatinine Clr Calc Pharmacy 72.3 [facility] Comment:eGFR (calculated fro m the MDRD study equation) and eCrCl(calculated from the Cockcroft-Gault equation) are based ondifferent parameters and may not yield comparable results.If eCrCl result is absurd, please check patient'sheight/weight. Estimated Glomerular Filt Rate 59 [facility] Comment:Chronic Kidney Disea se: Estimated GFR < 60 mL/min/1.52n5Klcmun Kidney Disease: Estimated GFR < 15 mL/min/1.73m2 Glucose 121(H) 60 - 115 mg/dL [facility] Calcium 9.7 8.4 - 10.2 mg/dL [facility] Bilirubin, Total 1.5(H) 0.0 - 1.0 mg/dL [facility] Aspartate Amino Transferase 30 5 - 37 U/L [facility] Alanine Aminotransferase 40 0 - 40 U/L [facility] Total Protein 8.3(H) 6.5 - 8.0 g/dL [facility] Albumin Level 5.1(H) 3.5 - 5.0 g/dL [facility] Alkaline Phosphatase 136(H) 39 - 117 U/L [facility] 04/22/2024 1:32 AM EST 04/22/2024 1:51 AM EST Generic External Data Provider LAB BLOOD ORDERAB LES Final Result Performing Organization Address [facility]/ZIP Co de Phone Number [facility] [address] [place] [phone] * Culture, Urine, Routine (04/22/2024 12:00 AM EST) Urine Urine specimen obtained by clean catch procedure / Unknown 04/22/2024 04/22/2024 Comment:UACC Narrative [facility] - 04/23/2024 11:45 AM EST Urine Culture No growth. Specimen Source: Urine clean catch Generic External Data Provider LAB MICROBIOLOGY - GENERAL ORDERABLES Final Result Performing Organization Address City/[facility]/ZIP Co de Phone Number [facility] [address] [place] [phone] from Last 3 Months Insurance [facility] [employer] C[facility] [address] [address] Care Teams Chucking And Sawing Machine Operator Relationship Specialty Start Date End Date Joan Barreto MD [address] [place] [phone] PCP - General Internal Medicine 06/30/24
[2024-06-30 11:57] LABS: MANUAL DIFF FLAG NO
[2024-06-30 12:03] LABS: Basophils Absolute Auto 0.1 X10*3/uL (0.0-0.2); Basophils Percent Auto 0.9 % (0-2); Eosinophils Absolute Auto 0.2 X10*3/uL (0.0-0.4); Eosinophils Percent Auto 2.3 % (0-4); Hematocrit 41.8 % (42.0-52.0); Hemoglobin 15.1 g/dl (14.0-18.0); Imm Gran Abs Auto 0.02 X10*3/uL (0.00-0.03); Imm Gran Pct Auto 0.2 % (0.0-0.4); Lymphocytes Absolute Auto 2.4 X10*3/uL (1.2-4.9); Lymphocytes Percent Auto 26.2 % (20-40); Mean Corpuscular HGB Conc 36.1 g/dl (31.0-36.0); Mean Corpuscular Hemoglobin 33.7 pg (27.0-33.0); Mean Corpuscular Volume 93.3 fL (80.0-98.0); Mean Platelet Volume 9.6 fL (9.4-12.4); Monocytes Absolute Auto 0.6 X10*3/uL (0.1-1.2); Monocytes Percent Auto 6.8 % (2-11); Neutrophils Absolute Auto 5.8 x10*3/uL (2.0-8.3); Neutrophils Percent Auto 63.6 % (45-73); Platelet Count 251 X10*3/uL (160-400); Red Blood Count 4.48 X10*6/uL (4.60-5.80); Red Cell Distribution Width 12.7 % (11.0-16.0); White Blood Count 9.1 X10*3/uL (4.8-10.8)
[2024-06-30 12:30] LABS: Alanine Aminotransferase 45 U/L (0-40); Albumin Level 4.2 g/dL (3.5-5.0); Alkaline Phosphatase 122 U/L (39-117); Anion Gap 10 (12-20); Aspartate Amino Transferase 31 U/L (5-37); Bilirubin Total 0.7 mg/dL (0.0-1.0); Blood Urea Nitrogen 14 mg/dL (9-16); Calcium 9.1 mg/dL (8.4-10.2); Carbon Dioxide 24 mmol/L (22-29); Chloride 110 mmol/L (96-108); Cholesterol 190 mg/dL (<200); Estimated Glomerular Filt Rate > 60; Glucose Random 90 mg/dL (60-115); HDL Cholesterol 45 mg/dL (>40); LDL Cholesterol Calculated 134 mg/dL (<100); Potassium 4.1 mmol/L (3.3-5.1); Sodium 140 mmol/L (135-145); Total Protein 7.1 g/dL (6.5-8.0); Triglycerides 56 mg/dL (<150)
[2024-06-30 12:48] LABS: TSH reflex Free T4 0.92 uIU/mL (0.32-4.0)
[2024-06-30 12:54] LABS: Reflex LDLD? No
[2024-06-30 13:11] LABS: Folate 7.2 ng/mL (> or = 4.0); Vitamin B12 1203 pg/mL (200-900)
[2024-07-01 09:00] LABS: HBS Num1 > 1000.00 mIU/mL (0-7.99); HBc Num1 0.11 S/CO (0.00-0.79); HBsAGNum1 0.43 S/CO (0.00-0.99); HIV AB/AG Nonreactive (Nonreactive); HIV Num 1 0.05 S/CO (0.00-0.99); Hepatitis A Antibody IgM 0.16 Index (0-0.79); Hepatitis B Core Antibody Nonreactive (Nonreactive); Hepatitis B Surface Antigen Negative (Negative); ~HepC Num1 0.24 S/CO (0.00-0.79); ~Hepatitis A Antibody IgM Nonreactive (Nonreactive); ~Hepatitis B Surface Antibody REACTIVE (Nonreactive); ~Hepatitis C Antibody Nonreactive (Nonreactive)
[2024-07-01 09:15] LABS: Syphilis Screen Nonreactive (Nonreactive)
[2024-07-03 16:47] LABS: TS Negative Control Passed; TS Panel A 0; TS Panel B 0; TS Positive Control Passed; TSpotTB Negative (Negative)
== END 2024-06-30 10:02 | disposition home or self-care (01) ==
LOC: HO.HHCL 10:01
PROVIDERS: Visit Provider Internal Medicine
DX: R03.0 Elevated blood-pressure reading, without diagnosis of hypertension (principal); F41.1 Generalized anxiety disorder; F40.01 Agoraphobia with panic disorder
CPT/HCPCS: 36415; 80053; 80061; 82607; 82746; 84443; 85025; 86481; 86704; 86706; 86709; 86780; 86803; 87340; 87389

== ENCOUNTER 2024-08-31 07:17 | Day surgery (SDC) | payer MEDICAID, SELFPAY ==
--- OUTSIDE RECORDS SUMMARY | 2024-06-21 16:46 | XMS_ITS | Clinical Summary ---
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 14 tablet 12/10/2023 Active acetaminophen (Tylenol) 500 MG tablet Take 2 tablets (1,000 mg) by mouth every 6 (six) hours if needed for moderate pain or fever for up to 25 doses. 30 tablet 12/10/2023 Active ibuprofen 400 MG tablet Take 1 tablet (400 mg) by mouth every 6 (six) hours if needed for moderate pain or fever for up to 30 doses. 30 tablet 12/10/2023 Active Active Problems Problem Noted Date Diagnosed Date Tobacco dependence 12/10/2023 Encounters Date Type Department Care Team Description 04/22/2024 Orders Only GENERIC EXTERNAL DATA DEPARTMENT Provider, Generic External Data 04/19/2024 Telephone [facility] [address] [place] [address] [phone] Joan Barreto MD New pt appt from Last 3 Months Immunizations Name Administration Dates Next Due Influenza injectable quadrivalent preservative f ree 04/23/2020 Tdap 10/09/2023 Social History Tobacco Use Types Packs/Day Years Used Date Smoking Tobacco: Every Day Cigarettes 0.5 21.2 Started: 2003 Smokeless Tobacco: Never Tobacco Cessation:Ready to Q uit: Not Asked; Counseling Given: Not Answered Education Answer Date Recorded What is the highest level of school you have completed or the highest degree you have received? GED or equivalent Sex and Gender Information Value Date Recorded Sex Assigned at Male 02/24/2022 10:30 AM EDT Legal Sex Male 10:30 AM EDT Gender Identity Other 02/24/2022 10:30 AM EDT Sexual Orientation Something else 02/24/2022 10 :30 AM EDT Last Filed Vital Signs Vital Sign Reading Time Taken Comments Blood Pressure 134/81 12/10/2023 12:45 PM EDT Pulse 65 12/10/2023 12:45 PM EDT Temperature 36.2 ??C (97.1 ??F) 12/10/2023 1 2:45 PM EDT Respiratory Rate 17 12/10/2023 12:4 5 PM EDT Oxygen Saturation 98% 12/10/2023 12: 45 PM EDT Inhaled Oxygen Concentration - - Weight 72.9 kg (160 lb 12.8 oz) 024 12:45 PM EDT Height 172.6 cm (5' 7.95 ) 04/23/2020 1 2:12 AM EST Body Mass Index 24.48 04/23/2020 12:12 AM EST Plan of Treatment Upcoming Encounters Date Type Department Care Team (Late st Contact Info) Description 06/30/2024 9:15 AM EST Office Visit [facility] [address] [place], [place] [phone] Joan Barreto MD [address] [place] [address] Health Maintenance Due Date Last Done Comments Depression Screening 1986 HIV Screening 1986 Lipid Panel 1986 SDOH Screening 1986 Alcohol/Substance Use Screening 1998 Family Planning (PISQ) 2001 Hepatitis C Screening 2004 Hepatitis A Vaccines (1 of 2 - Risk 2-dose series) 2005 Hepatitis B Vaccines (1 of 3 - 19+ 3-dose series) 2005 Pneumococcal Vaccine: Pediatrics (0 to 5 Years) and At-Risk Patients (6 to 49) Years) (1 of 2 - PCV) 2005 COVID-19 Vaccine (2023-2 5 season) 2023 12/19/2021, 01/09/2021, 12/19/2020 Influenza Vaccine (#1) 2023 04/23/2020 Tobacco Screening 12/09/2024 12/10/2023 DTaP/Tdap/Td Vaccines (2 - T d or Tdap) 10/08/2033 10/09/2023 Zoster Vaccines (1 of 2) 2036 RSV Patients and Patients Aged 60 years or older (1 - 1-dose 75+ series) 2061 HIB Vaccines Aged Out No longer eligi ble based on patient's age to complete this topic HPV Vaccines Aged Out No longer eligi ble based on patient's age to complete this topic IPV Vaccines Aged Out No longer eligi ble based on patient's age to complete this topic Meningococcal Vaccine Aged Out No merlin alfonso eligible based on patient's age to complete this topic RSV under 20 months Aged Out No longe r eligible based on patient's age to complete this topic Rotavirus Vaccines Aged Out No longer eligible based on patient's age to complete this topic Procedures Procedure Name Priority Date/Time Associated Diagnosis Comments CT ABDOMEN PELVIS WO CONTRAST Routine 04/22/2024 7:19 AM EST URINALYSIS, COMPLETE, WITH REFLEX TO CULTURE Routine 04/22/2024 5:26 AM EST COMPREHENSIVE METABOLIC PANEL Routine 04/22/2024 1:32 AM EST CBC WITH AUTO DIFFERENTIAL Routine 04/22/2024 1:32 AM EST CULTURE, URINE, ROUTINE Routine 04/22/2024 12:00 AM EST from Last 3 Months Results * CT Abdomen Pelvis w/o Contrast (04/22/2024 7:19 AM EST) Anatomical Region Laterality Modality Body, Pelvis, Abdomen Computed T omography 04/22/2024 7:19 AM EST Narrative 04/22/2024 9:59 AM EST ? [facility] ?[address] ?[place] [address] ? CT Scan Report ? Signed ? Patient: Rod,Rm ?MR#: [id number] ? : 1985 ?Acct:[id number] ? Age/Sex: 38 / M ?ADM Date: 04/22/24 ? Loc: HO.ED ? Attending Dr: ? Ordering Physician: Judith Munguia ?? Date of Service: 04/22/24 ?? Procedure(s): CT abdomen pelvis wo IV con ?? Accession Number(s): [id number] ? cc: Joan Barreto MD; Judith Munguia ? Report Number: ?? [id number]: Total DLP = ??455.00 mGy-cm ?? EXAMINATION: ?? CT ABDOMEN AND PELVIS WITHOUT CONTRAST ? CLINICAL INFORMATION: ?? Left flank pain. ? COMPARISON: ?? None available. ? TECHNIQUE: ?? Multidetector volumetric imaging was performed from the superior aspect ?? of the liver through the pubic symphysis. Sagittal and coronal ?? reformatted images were obtained on the technologist's workstation. ? This CT examination was performed using dose optimization techniques as ?? appropriate, variously including the following: ?? *Automated exposure control ?? *Adjustment of mA and/or kV according to patient size (this includes ?? techniques or standardized protocols for targeted exams where dose is ?? matched to indication/reason for exam; i.e. extremities or head) ?? *Use of iterative reconstruction technique ? DLP: ?? 429 mGy-cm ? FINDINGS: ?? LUNG BASES: ?? -Lung bases are clear bilaterally. No effusions. ?? -Heart size is normal. ?? -GE junction is normal. ? LIVER, GALLBLADDER, AND BILIARY TREE: The liver is normal in size, ?? shape, and attenuation. No focal hepatic lesion or biliary ductal ?? dilatation is present. The gallbladder is unremarkable with no evidence ?? of radiopaque gallstones, gallbladder wall thickening, or obvious ?? pericholecystic inflammatory changes. ? PANCREAS: Unremarkable. ? SPLEEN: Unremarkable. ? ADRENAL GLANDS: Unremarkable. ? KIDNEYS AND URETERS: ?? -Right Kidney: There are 3 nonobstructing tiny 2-3 mm calculi in the ?? mid to inferior pole. There is no hydronephrosis or mass. There is a ?? cyst in the upper pole measuring 1.8 cm. Hyperattenuating renal ?? pyramids may suggest medullary nephrocalcinosis. ? -Left Kidney: ??There are 2 large calculi within the left mid to ?? inferior left kidney, both oval in shape. The more anteroinferior ?? measures 1.4 x 1.0 cm coronal plane, the more superolateral posterior ?? measures 1.6 x 1.2 cm coronal plane. There is minimal calyceal ?? dilatation/minimal hydronephrosis. Hyperattenuating renal pyramids may ?? suggest medullary nephrocalcinosis. ? Ureters: Nondilated and normal in course and caliber. No obstructing ?? abnormalities. ? BLADDER: Somewhat decompressed but normal in appearance. ? GASTROINTESTINAL TRACT: The stomach, duodenum, and small bowel are ?? normal in appearance. The appendix is unremarkable. ??There is mild ?? diverticulosis of the sigmoid colon. Colon is otherwise normal. No ?? rectal abnormality. ? ABDOMINAL WALL: ?? -No significant hernia is appreciated. ? -No masses or abnormal lymph nodes. ? LYMPH NODES: Normal. ? VASCULAR: Unremarkable. ? PELVIC VISCERA: Unremarkable. ? OSSEOUS STRUCTURES: ?? -No suspicious lytic or blastic bone lesions. No acute findings. ? CT/CT abdomen pelvis wo IV con ?? IMPRESSION: ?? 1. There are 2 large possibly minimally obstructing calculi in the left ?? mid to lower kidney calyces, larger more superolateral in the kidney ?? measuring 1.6 x 1.2 cm, and the smaller anterolateral inferior ?? measuring 1.4 x 1.0 cm. There is minimal dilatation of the left renal ?? calyces without gross hydronephrosis. ?? 2. There are 3 nonobstructing calculi in the right kidney mid to ?? inferior pole, measuring 3 mm maximally. ?? 3. Echogenic renal pyramids bilaterally suggesting medullary ?? nephrocalcinosis. Differential includes medullary sponge kidney, renal ?? tubular acidosis type I, hypervitaminosis D, and hypercalcemic states ?? such as hyperparathyroidism. Less common etiologies to consider include ?? sarcoidosis and renal papillary necrosis. ?? 4. Additional ancillary findings as discussed in the body of the report. ? Electronically signed by: ??Zenon Israel MD ??04/22/2024 09:56 AM EST RP ? Dictated By: ?Zenon Israel MD ? Signed By: ?<Electronically signed by Zenon Israel MD in OV> ?04/22/24 0956 ? DD/ 0719 ? TD/TT: 04/22/24 0826 ? Marine Painter: ? Procedure Note Donotuseinterpreter, Image - 04/22/[address] [place] [address] [address] Scan Report Signed Patient: Jayson Velasco#: [id number] : 1985Acct:[id number] Age/Sex: 38 / MADM Date: 04/22/24 Loc: HO.ED Attending Dr: Ordering Physician: Judith Munguia Date of Service: 04/22/24 Procedure(s): CT abdomen pelvis wo IV con Accession Number(s): [id number] cc: Joan Barreto MD; Judith Munguia Report Number: [id number]: Total DLP = 455.00 mGy-cm EXAMINATION: CT ABDOMEN AND PELVIS WITHOUT CONTRAST CLINICAL INFORMATION: Left flank pain. COMPARISON: None available. TECHNIQUE: Multidetector volumetric imaging was performed from the superior aspect of the liver through the pubic symphysis. Sagittal and coronal reformatted images were obtained on the technologist's workstation. This CT examination was performed using dose optimization techniques as appropriate, variously including the following: *Automated exposure control *Adjustment of mA and/or kV according to patient size (this includes techniques or standardized protocols for targeted exams where dose is matched to indication/reason for exam; i.e. extremities or head) *Use of iterative reconstruction technique DLP: 429 mGy-cm FINDINGS: LUNG BASES: -Lung bases are clear bilaterally. No effusions. -Heart size is normal. -GE junction is normal. LIVER, GALLBLADDER, AND BILIARY TREE: The liver is normal in size, shape, and attenuation. No focal hepatic lesion or biliary ductal dilatation is present. The gallbladder is unremarkable with no evidence of radiopaque gallstones, gallbladder wall thickening, or obvious pericholecystic inflammatory changes. PANCREAS: Unremarkable. SPLEEN: Unremarkable. ADRENAL GLANDS: Unremarkable. KIDNEYS AND URETERS: -Right Kidney: There are 3 nonobstructing tiny 2-3 mm calculi in the mid to inferior pole. There is no hydronephrosis or mass. There is a cyst in the upper pole measuring 1.8 cm. Hyperattenuating renal pyramids may suggest medullary nephrocalcinosis. -Left Kidney: There are 2 large calculi within the left mid to inferior left kidney, both oval in shape. The more anteroinferior measures 1.4 x 1.0 cm coronal plane, the more superolateral posterior measures 1.6 x 1.2 cm coronal plane. There is minimal calyceal dilatation/minimal hydronephrosis. Hyperattenuating renal pyramids may suggest medullary nephrocalcinosis. Ureters: Nondilated and normal in course and caliber. No obstructing abnormalities. BLADDER: Somewhat decompressed but normal in appearance. GASTROINTESTINAL TRACT: The stomach, duodenum, and small bowel are normal in appearance. The appendix is unremarkable. There is mild diverticulosis of the sigmoid colon. Colon is otherwise normal. No rectal abnormality. ABDOMINAL WALL: -No significant hernia is appreciated. -No masses or abnormal lymph nodes. LYMPH NODES: Normal. VASCULAR: Unremarkable. PELVIC VISCERA: Unremarkable. OSSEOUS STRUCTURES: -No suspicious lytic or blastic bone lesions. No acute findings. CT/CT abdomen pelvis wo IV con IMPRESSION: 1. There are 2 large possibly minimally obstructing calculi in the left mid to lower kidney calyces, larger more superolateral in the kidney measuring 1.6 x 1.2 cm, and the smaller anterolateral inferior measuring 1.4 x 1.0 cm. There is minimal dilatation of the left renal calyces without gross hydronephrosis. 2. There are 3 nonobstructing calculi in the right kidney mid to inferior pole, measuring 3 mm maximally. 3. Echogenic renal pyramids bilaterally suggesting medullary nephrocalcinosis. Differential includes medullary sponge kidney, renal tubular acidosis type I, hypervitaminosis D, and hypercalcemic states such as hyperparathyroidism. Less common etiologies to consider include sarcoidosis and renal papillary necrosis. 4. Additional ancillary findings as discussed in the body of the report. Electronically signed by: Zenon Israel MD 04/22/2024 09:56 AM EST Dictated By: Zenon Israel MD Signed By: <Electronically signed by Zenon Israel MD in OV> 04/22/24 0956 DD/ TD/TT: 04/22/24 08 Marine Painter: us [facility] External Provider IMG CT PROCEDURES Edited Result - Final * (ABNORMAL) Urinalysis, Complete, with Reflex to Culture (04/22/2024 5:26 AM EST) Color Urine Dark Yellow [facility] Appearance Urine Cloudy [facility] PH 5.5 5.0 - 9.0 [facility] Glucose Urine UA Negative Negative mg/dL [facility] Urine Blood Large (3+)(A) Negative [facility] Specific [place] - Urine >=1.030(H) 1.005 - 1.025 [facility] Urine Protein 100 (2+)(A) Neg-Trace mg/dL [facility] Urine Ketones 15 Negative mg/dL [facility] Nitrite Urine Negative Negative [facility] Leukocyte Esterase Urine Trace(A) Negative [facility] RBC Urine >20(A) 0 - 2 /HPF [facility] Urine WBC 11-20(A) 0 - 5 /HPF [facility] WBC [place], UR Present [facility] Urine Squamous Epithelial Cell 6-10 0 - 2 /HPF [facility] Other Crystals Urine Present [facility] Urine Bacteria None Seen None Seen [facility] Hyaline Casts, Urine 6-10 0 - 2 /LPF [facility] 04/22/2024 5:26 AM EST 04/22/2024 5:31 AM EST Narrative [facility] - 04/22/2024 5:43 AM EST Urine, Clean Catch Generic External Data Provider LAB URINE ORDERAB LES Final Result [facility] [address] [place], [place] [phone] * (ABNORMAL) CBC auto differential (04/22/2024 1:32 AM EST) White Blood Count 12.7(H) 4.8 - 10.8 X10*3/uL [facility] Red Blood Count 5.32 4.60 - 5.80 X10*6/uL [facility] Hemoglobin 17.8 14.0 - 18.0 g/dl [facility] Hematocrit 48.2 42.0 - 52.0 % [facility] Mean Corpuscular Volume 90.6 80.0 - 98.0 fL [facility] Mean Corpuscular Hemoglobin 33.5(H) 27.0 - 33.0 pg [facility] Mean Corpuscular HGB Conc 36.9(H) 31.0 - 36.0 g/dl [facility] Red Cell Distribution Width 12.2 11.0 - 16.0 % [facility] Platelet Count 278 160 - 400 X10*3/uL [facility] Mean Platelet Volume 9.3(L) 9.4 - 12.4 fL [facility] Neutrophils Percent Auto 76.0(H) 45 - 73 % [facility] Imm Gran Pct Auto 0.3 0.0 - 0.4 % [facility] Lymphocytes Percent Auto 16.7(L) 20 - 40 % [facility] Monocytes Percent Auto 6.4 2 - 11 % [facility] Eosinophils Percent Auto 0.2 0 - 4 % [facility] Basophils Percent Auto 0.4 0 - 2 % [facility] NRBC Pct Auto 0.0 0.0 - 0.2 /100WBC [facility] Neutrophils Absolute Auto 9.6(H) 2.0 - 8.3 x10*3/uL [facility] Imm Gran Abs Auto 0.04(H) 0.00 - 0.03 X10*3/uL [facility] Lymphocytes Absolute Auto 2.1 1.2 - 4.9 X10*3/uL [facility] Monocytes Absolute Auto 0.8 0.1 - 1.2 X10*3/uL [facility] Eosinophils Absolute Auto 0.0 0.0 - 0.4 X10*3/uL [facility] Basophils Absolute Auto 0.1 0.0 - 0.2 X10*3/uL [facility] NRBC Abs Auto 0.000 0.0 - 0.012 X10*3/uL [facility] 04/22/2024 1:32 AM EST 04/22/2024 1:51 AM EST us Generic External Data Provider LAB BLOOD ORDERAB LES Final Result [facility] [address] [place] [address] [phone] * (ABNORMAL) Comprehensive Metabolic Panel (04/22/2024 1:32 AM EST) Sodium 137 135 - 145 mmol/L [facility] Potassium 4.2 3.3 - 5.1 mmol/L [facility] Chloride 104 96 - 108 mmol/L [facility] Carbon Dioxide 21(L) 22 - 29 mmol/L [facility] Anion Gap 16 12 - 20 [facility] Urea Nitrogen (BUN) 23(H) 9 - 16 mg/dL [facility] Creatinine, Serum 1.35 0.5 - 1.4 mg/dL [facility] Creatinine Clr Calc Pharmacy 72.3 [facility] Comment:eGFR (calculated fro m the MDRD study equation) and eCrCl(calculated from the Cockcroft-Gault equation) are based ondifferent parameters and may not yield comparable results.If eCrCl result is absurd, please check patient'sheight/weight. Estimated Glomerular Filt Rate 59 [facility] Comment:Chronic Kidney Disea se: Estimated GFR < 60 mL/min/[id number] Kidney Disease: Estimated GFR < 15 mL/min/1.73m2 Glucose 121(H) 60 - 115 mg/dL [facility] Calcium 9.7 8.4 - 10.2 mg/dL [facility] Bilirubin, Total 1.5(H) 0.0 - 1.0 mg/dL [facility] Aspartate Amino Transferase 30 5 - 37 U/L [facility] Alanine Aminotransferase 40 0 - 40 U/L [facility] Total Protein 8.3(H) 6.5 - 8.0 g/dL [facility] Albumin Level 5.1(H) 3.5 - 5.0 g/dL [facility] Alkaline Phosphatase 136(H) 39 - 117 U/L [facility] 04/22/2024 1:32 AM EST 04/22/2024 1:51 AM EST Generic External Data Provider LAB BLOOD ORDERAB LES Final Result Performing Organization Address [facility]/ZIP Co de Phone Number [facility] [address] [place] [address] [phone] * Culture, Urine, Routine (04/22/2024 12:00 AM EST) Urine Urine specimen obtained by clean catch procedure / Unknown 04/22/2024 04/22/2024 Comment:[facility] Narrative [facility] - 04/23/2024 11:45 AM EST Urine Culture No growth. Specimen Source: Urine clean catch Generic External Data Provider LAB MICROBIOLOGY - GENERAL ORDERABLES Final Result Performing Organization Address City/[facility]/ZIP Co de Phone Number [facility] [address] [place] [address] [phone] from Last 3 Months Insurance [facility] C[facility]
--- NOTE | 2024-06-28 10:17 | HO.ANESPROP2 ---
HPI - Anesthesia Eval Consult details Narrative: 39yo M for Left Lithotripsy ESW PMFSH Active Problems Active Problems: All Active Problems Bilateral kidney stones (Acute) Meds Allergies Allergy/AdvReac Type Severity Reaction Status Date / Time No Known Allergies Allergy Verified 04/28/24 10:24 [No Known Allergies*] Assessment and Plan Assessment Anesthesia Assessment: Chart Reviewed
--- NOTE | ~2024-08-31 | XR_ITS ---
EXAMINATION: XR ABDOMEN 1 VIEW (KUB) HISTORY: pre Left ESWL COMPARISON: Correlation is made with an unenhanced CT of the abdomen and pelvis dated 04/22/2024. FINDINGS: Two supine views of the abdomen are submitted. The bowel gas pattern is unremarkable, without evidence of mechanical obstruction. There are two adjacent calcifications overlying the left renal shadow, measuring up to 1.8 cm in size. These correspond to renal calculi on CT. There are phleboliths in the pelvis. There are no abnormal soft tissue masses. The bones are intact. XR/XR KUB IMPRESSION: Left renal calculi measuring up to 1.8 cm in size. Electronically signed by: Varinder Madrigal MD 08/31/2024 07:36 AM EDT
[2024-08-31 07:49] VITALS: BMI 22.7
[2024-08-31 07:51] VITALS: BP 109/66; PULSE 73; RESP 16; TEMP 37.1; O2SAT 97
[2024-08-31] MEDS: Lactated Ringers 1,000 ML 100 ML IVCONT (08:03)
[2024-08-31] MEDS: Acetaminophen 1,000 MG/100 ML PIGGYBACK 400 MG IV (08:04)
--- NOTE | 2024-08-31 08:18 | HO.ANESPROP2 ---
[facility] Active Problems Active Problems: All Active Problems Bilateral kidney stones (Acute) Past Medical History Functional capacity: independent ambulation Family History Family history of problems with anesthesia: No Surgical History History of Problems with Anesthesia: No Social History Social History Patient Tobacco Use Status: Current everyday Tobacco user Cigarettes Per Day: 4 Smoked in Last 30 Days: Yes Use of substances other than those prescribed or required for medical reasons: Yes Substance Use Type Other:: 2x day, last smoked 08/31/24 Are you DNR?: No Advance Directives: No Advance Directives Information Provided: Yes Meds Allergies Allergy/AdvReac Type Severity Reaction Status Date / Time No Known Allergies Allergy Verified 08/31/24 07:48 [No Known Allergies*] Active Medications: Current Medications Lactated Ringer's (Lr) 1,000 mls @ 100 mls/hr IVCONT .Q10H RC Last Admin: 08/31/24 08:03 Dose: 100 mls/hr Exam Height,Weight and Vital Signs: Height 5 ft 8 in Weight 67.6 kg Last Vital Signs Temp 98.7 F 08/31/24 07:51 Pulse 73 08/31/24 07:51 Resp 16 08/31/24 07:51 BP 109/66 08/31/24 07:51 Pulse Ox 97 08/31/24 07:51 O2 Del Method Room Air 08/31/24 07:51 Airway Mallampati Class: II TM Dist: >3cm Neck ROM: Full Heart: RRR Lungs: CTA Assessment and Plan Assessment Anesthesia Assessment: Anesthesia Plan Discussed, Smoking Cess. Discussed and Chart Reviewed Final Anesthetic Review Family History of Problems with Anesthesia: No History of Problems with Anesthesia: No NPO: Yes ASA Class: II Final Preanesthetic Review: Meds/Allgs Chart Reviewed, Consent Obtained/Reviewed and Anes Risks/Benef Reviewed Anesthetic Plan Anesthetic Plan: MAC: Disposition: Standard PACU
--- NOTE | 2024-08-31 09:05 | MHC.SHP ---
Pre-Procedural Eval Section A - 24 Hr Update-Section A only Date of Service: 08/31/24 The patient is an INPATIENT: No The patient has been examined within 24 hours of the surgical procedure. The History & Physical has been completed within 30 days and I have reviewed it.: Yes Section B - Complete if H&P > 30 days Chief Complaint: Calculus of kidney, left Allergies: Allergies Allergy/AdvReac Type Severity Reaction Status Date / Time No Known Allergies Allergy Verified 08/31/24 07:48 [No Known Allergies*] Plan Diagnosis/Plan: Unchanged I have reviewed the history and physical and performed a pertinent physical examination on my patient. No changes have occurred unless specified. Left ESWL. Discussed risks to include but not limited to, blood in the urine, bruising to the skin, kidney hematoma, possible need for another procedure if a stone fragment obstructs the ureter while passing, possible need to repeat procedure if stone is not completely fragmented. Time Spent With Patient Time: Total time managing care of this patient today ____ minutes.
--- NOTE | 2024-08-31 10:00 | W.PM.OPN ---
Operative Note Operative Note Date of Service: 08/31/24 Narrative: PreOperative Diagnosis:? ? Left Renal stone Post Operative Diagnosis:?Left? Renal stone Procedure:?Left? ESWL Surgeon:?Dr Jazmin Schwartz Anesthesia:? General Indications for procedure: The patient understands there is a risk of bruising or hematoma to the kidney, infection, and stone migration following the procedure and subsequent intervention may be required.? - Imaging 2 stones left kidey- 1.8 cm and 1.6 cm Procedure: After informed consent was verified the patient was brought to the operating room and placed in a supine position.? Anesthesia was performed per protocol. Safety pause time-out was performed. Imaging was displayed in the room and laterality confirmed. ESWL was performed.?The stone was visualized on both fluoroscopy and ultrasound.? Shockwave lithotripsy was performed, with a maximum rate of 120 hertz. After the first 300 shocks a pause for 3 minutes was completed.?At 1800 shocks, rate was reduced to 60 Hertz. A total of 2500 shocks to a maximum of power of 20 with a maximum rate of 120 hertz.? Some fragmentation of the stone was appreciated. The patient tolerated the procedure well and was transferred to the recovery area upon completion. Complications: None
[2024-08-31 10:11] VITALS: BP 138/76; PULSE 64; RESP 16; TEMP 36.5; O2SAT 97
[2024-08-31 10:17] VITALS: BP 140/75; PULSE 86; RESP 18; O2SAT 98
[2024-08-31 10:22] VITALS: BP 132/78; PULSE 62; RESP 17; O2SAT 98
[2024-08-31 10:26] VITALS: BP 128/73; PULSE 60; RESP 18; O2SAT 98
[2024-08-31 10:37] VITALS: BP 128/67; PULSE 56; RESP 18; TEMP 36.3; O2SAT 98
--- NOTE | 2024-08-31 11:42 | HO.POSTANES ---
Post Anesthesia Evaluation Post Anesthesia Evaluation Date of Service: 08/31/24 Vital Signs: Vital Signs Temp Pulse Resp BP Pulse Ox O2 Del Method 08/31/24 10:37 97.4 F 56 18 128/67 98 Room Air 08/31/24 10:26 60 18 128/73 98 Room Air 08/31/24 10:22 62 17 132/78 98 Room Air 08/31/24 10:17 86 18 140/75 H 98 Room Air 08/31/24 10:11 97.7 F 64 16 138/76 97 Room Air 08/31/24 07:51 98.7 F 73 16 109/66 97 Room Air Anesthesia: General LMA Mental Status: Awake Pain Control: Satisfactory Nausea/Vomiting: None Hydration: Adequate Anesthesia-Related Issues: No Anes. Related Issues
== END 2024-08-31 11:11 | disposition home or self-care (01) ==
PROVIDERS: PCP Internal Medicine; Visit Provider Urology
PROC: (CPT 50590; principal; 2024-08-31 09:30)
DX: N20.0 Calculus of kidney (principal); N28.1 Cyst of kidney, acquired; K57.30 Diverticulosis of large intestine without perforation or abscess without bleeding; Z79.899 Other long term (current) drug therapy
CPT/HCPCS: 50590; 74018; J0131; J0690; J1100; J1938; J2003; J2250; J2405; J2704; J3010

== ENCOUNTER → 2024-08-31 07:17 | Outpatient (BNV) | payer MEDICAID, SELFPAY | PROVIDERS: PCP Internal Medicine; Visit Provider Urology | DX: N20.0 Calculus of kidney (principal) | CPT/HCPCS: 50590 ==

== ENCOUNTER → 2024-08-31 08:00 | Outpatient (BNV) | payer MEDICAID, SELFPAY | PROVIDERS: PCP Internal Medicine; Visit Provider Radiology Diagnostic Radiology | DX: N20.0 Calculus of kidney (principal) | CPT/HCPCS: 74018 ==

== ENCOUNTER 2024-09-16 10:50 | Outpatient (REF) | payer MEDICAID, SELFPAY ==
--- OUTSIDE RECORDS SUMMARY | 2024-09-21 11:58 | XMS_ITS | Clinical Summary ---
Author Organization [employer] Address [address] [facility] [address] [place] [address] Care Team Providers Care Clinical Programmer Name Role Phone Joan Barreto MD Primary Care Provider + Allergies Active Allergy Reactions Criticality Noted Date Comments Pertussis Vaccines 04/10/2020 Medications acetaminophen (Tylenol) 500 MG tablet Take 2 tablets (1,000 mg) by mouth every 6 (six) hours if needed for moderate pain or fever for up to 25 doses. 30 tablet 4 Active ibuprofen 400 MG tablet Take 1 tablet (400 mg) by mouth every 6 (six) hours if needed for moderate pain or fever for up to 30 doses. 30 tablet 4 Active Blood Pressure Monitoring (Blood Pressure Cuff) misc Use daily as prescribed 1 each 5 Active Active Problems Problem Noted Date Diagnosed Date Bilateral kidney stones 09/08/2024 Generalized anxiety disorder 06/30/2024 Assessment & Plan (06/30/2024 2:15 PM EST): There seems to be good response to CBT, self-care and other therapies. He declined referral to psychotherapy at this time. He feels safe at home at this time and is able to reach out for safety, he knows crisis numbers. Avoid using THC or any other recreational substances Order labs and follow-up in 1 to 2 months Panic disorder with agoraphobia 06/30/2024 Assessment & Plan (06/30/2024 2:16 PM EST): Seems to be doing well with CBT and other psychotherapy techniques and self- care. He is able to reach out for safety and has crisis numbers Follow-up at next visit Elevated blood pressure reading 06/30/2024 Assessment & Plan (06/30/2024 2:15 PM EST): Counseled re low salt diet/increase moderate physical activity. Order labs and will follow-up BP at next visit. Counseled to cut down smoking, even THC. Preventative health care 06/30/2024 Assessment & Plan (06/30/2024 2:17 PM EST): We discussed about STI prevention, I gave him condoms and then tell them samples. We discussed about PrEP, he does not want to start any medication at this time but is aware that he can come to STI clinic at any time. Check STD labs Tobacco dependence 12/10/2023 Encounters Date Type Department Care Team Description 09/09/2024 11:30 AM EDT Office Visit [facility] [address] [place] [phone] Joan Barreto MD 09/09/2024 Travel 09/08/[address] [phone] Joan Barreto MD chart prep 08/31/2024 Orders Only [facility] External Provider, [facility] 07/08/2024 Population Health Risk Score [facility] Department [address] [phone] Provider, Population Health Generic 06/30/2024 9:15 AM EST Office Visit [address] [phone] Joan Barreto MD Generalized anxiety disorder (Primary Dx); Panic disorder with agoraphobia; Elevated blood pressure reading; Preventative health care 06/30/2024 Travel 06/28/[address] [address] Evelyn Davenport [place] Chart prep from Last 3 Months Immunizations Immunization Administration Dates Next Due Influenza injectable quadrivalent preservative f ree 04/23/2020 Pfizer Covid-19 Vaccine 12+ ralph-sucrose (Peña C ap) 12/19/2021 Tdap 10/09/2023 Family History Medical History Relation Name Comments Seizures Brother No Known Problems Father Cerebral aneurysm Mother Relation Name Status Comments Brother Father Mother Social History Tobacco Use Types Packs/Day Years Used Date Smoking Tobacco: Every Day Cigarettes 0.5 21.4 Started: 2003 Smokeless Tobacco: Never Tobacco Cessation:Ready to Q uit: Not Asked; Counseling Given: Not Answered Alcohol Use Standard Drinks/Week Comments Not Currently 0 (1 standard drink = 0.6 oz pure alcohol) Hx heavy drinking before 21 yo then social drinking 1-2/y Depression Answer Date Recorded Patient Health Questionnaire-9 Score 0 09/09/2024 Patient Health Questionnaire-9 Score 0 09/09/2024 Last PHQ-9: Questionnaire Data Not on file 0 09/09/2024 Housing Stability Answer Date Recorded What is [...] Date Recorded Patient Health Questionnaire-2 Score 0 09/09/2024 Internet Access Answer Date Recorded Internet Access [...] Sign Reading Time Taken Comments Blood Pressure 120/80 09/09/2024 11:24 AM EDT Pulse 70 09/09/2024 11:24 AM EDT Temperature 36.6 ??C (97.8 ??F) 09/09/2024 11:24 AM E DT Respiratory Rate 16 09/09/2024 11:24 AM EDT Oxygen Saturation 98% 09/09/2024 11:24 AM EDT Inhaled Oxygen Concentration - - Weight 67.6 kg (149 lb) 09/09/2024 11:24 AM EDT Height 172.7 cm (5' 8 ) 09/09/2024 11:24 AM EDT Body Mass Index 22.66 09/09/2024 11:24 AM EDT Plan of Treatment Health Maintenance Due Date Last Done Comments Family Planning (PISQ) 2001 Hepatitis A Vaccines (1 of 2 - Risk 2-dose series) 2005 Hepatitis B Vaccines (1 of 3 - 19+ 3-dose series) 2005 Pneumococcal Vaccine: Pediatrics (0 to 5 Years) and At-Risk Patients (6 to 49) Years) (1 of 2 - PCV) 2005 COVID-19 Vaccine (2023-2 5 season) 2023 12/19/2021, 01/09/2021, 12/19/2020 Influenza Vaccine (#1) 2023 04/23/2020 SDOH Screening 06/30/2025 06/30/2024 Alcohol/Substance Use Screening 09/09/2025 09/09/2024 Depression Screening 09/09/2025 09/09/2024, 09/09/2024 Disability Screening 09/09/2025 09/09/2024 Tobacco Screening 09/09/2025 09/09/2024 Lipid Panel 06/30/2029 06/30/2024 DTaP/Tdap/Td Vaccines (2 - T d or Tdap) 10/08/2033 10/09/2023 Zoster Vaccines (1 of 2) 2036 RSV Patients and Patients Aged 60 years or older (1 - 1-dose 75+ series) 2061 HIV Screening Completed 06/30/2024 Hepatitis C Screening Completed 06/30/2024 HIB Vaccines Aged Out No longer eligi ble based on patient's age to complete this topic HPV Vaccines Aged Out No longer eligi ble based on patient's age to complete this topic IPV Vaccines Aged Out No longer eligi ble based on patient's age to complete this topic Meningococcal B Vaccine Aged Out No l onger eligible based on patient's age to complete [...] Procedure Name Priority Date/Time Associated Diagnosis Comments XR KUB AND UPRIGHT 2 VIEWS Routine 08/31/2024 8:00 AM EDT VITAMIN B12/FOLATE, SERUM PANEL Routine 06/30/2024 10:05 AM EST Panic disorder with agoraphobia CBC WITH AUTO DIFFERENTIAL Routine 06/30/2024 10:05 AM EST Elevated blood pressure reading SYPHILIS SCREEN Routine 06/30/2024 10:05 AM EST Panic disorder with agoraphobia Elevated blood pressure reading T-SPOT(R).TB Routine 06/30/2024 10:05 AM EST Elevated blood pressure reading TSH W/REFLEX TO FT4 Routine 06/30/2024 1 0:05 AM EST Panic disorder with agoraphobia HEPATITIS PANEL, GENERAL Routine 06/30/2024 10:05 AM EST Panic disorder with agoraphobia LIPID PANEL WITH REFLEX TO DIRECT LDL Routine 06/30/2024 10:05 AM EST Elevated blood pressure reading HIV 1/2 ANTIGEN/ANTIBODY, FOURTH GENERATION W/RFL Routine 06/30/2024 10:05 AM EST Generalized anxiety disorder Panic disorder with agoraphobia COMPREHENSIVE METABOLIC PANEL Routine 06/30/2024 10:05 AM EST Elevated blood pressure reading from Last 3 Months Results * XR KUB and Upright 2 Views (08/31/2024 8:00 AM EDT) Anatomical Region Laterality Modality Radiographic Vicki ging 08/31/2024 8:00 AM EDT Narrative 08/31/2024 7:38 AM EDT ? [facility] ?[address] ?[place] [address] ?XRay Report ? Signed ? Patient: Rm Velasco ?MR#: [id number] ? : 1985 ?Acct:[id number] ? Age/Sex: 39 / M ?ADM Date: 08/31/24 ? Loc: HO.SSS ? Attending Dr: Jazmin Schwartz MD ? Ordering Physician: Jazmin Schwartz MD ?? Date of Service: 08/31/24 ?? Procedure(s): XR KUB ?? Accession Number(s): [id number] ? cc: Jazmin Schwartz MD; Joan Barreto MD ? EXAMINATION: ??XR ABDOMEN 1 VIEW (KUB) ? HISTORY: pre Left ESWL ? COMPARISON: Correlation is made with an unenhanced CT of the abdomen ?? and pelvis dated 04/22/2024. ? FINDINGS: ??Two supine views of the abdomen are submitted. ?? The bowel ?? gas pattern is unremarkable, without evidence of mechanical ?? obstruction. ?? There are two adjacent calcifications overlying the left ?? renal shadow, measuring up to 1.8 cm in size. These correspond to renal ?? calculi on CT. There are phleboliths in the pelvis. ?? There are no ?? abnormal soft tissue masses. ??The bones are intact. ? XR/XR KUB ?? IMPRESSION: ?? Left renal calculi measuring up to 1.8 cm in size. ? Electronically signed by: ??Varinder Madrigal MD ??08/31/2024 07:36 AM EDT ?? RP ? Dictated By: ?Varinder Madrigal MD ? Signed By: ?<Electronically signed by Varinder Madrigal MD in OV> ?08/31/24 0736 ? DD/ 0800 ? TD/TT: 08/31/24 0725 ? Filter Press Tender Head: ? Procedure Note Donotuseinterpreter, Image - 08/31/[address] [address] XRay Report Signed Patient: Jayson Velasco#: [id number] : 1985Acct:[id number] Age/Sex: 39 / MADM Date: 08/31/24 Loc: HO.SSS Attending Dr: Jazmin Schwartz MD Ordering Physician: Jazmin Schwartz MD Date of Service: 08/31/24 Procedure(s): XR KUB Accession Number(s): [id number] cc: Jazmin Schwartz MD; Joan Barreto MD EXAMINATION: XR ABDOMEN 1 VIEW (KUB) HISTORY: pre Left ESWL COMPARISON: Correlation is made with an unenhanced CT of the abdomen and pelvis dated 04/22/2024. FINDINGS: Two supine views of the abdomen are submitted. The bowel gas pattern is unremarkable, without evidence of mechanical obstruction. There are two adjacent calcifications overlying the left renal shadow, measuring up to 1.8 cm in size. These correspond to renal calculi on CT. There are phleboliths in the pelvis. There are no abnormal soft tissue masses. The bones are intact. XR/XR KUB IMPRESSION: Left renal calculi measuring up to 1.8 cm in size. Electronically signed by: Varinder Madrigal MD 08/31/2024 07:36 AM EDT Dictated By: Varinder Madrgial MD Signed By: <Electronically signed by Varinder Madrigal MD in OV> 08/31/24735 DD/ 9 TD/TT: 08/31/24724 Filter Press Tender Head: [facility] External Provider IMG XR PROCEDURES Final Result * Syphilis Screen (06/30/2024 10:05 AM EST) Syphilis Screen Nonreactive Nonreactive [facility] Blood 06/30/2024 10:0 5 AM EST 06/30/2024 11:51 AM EST Joan Barreto MD LAB BLOOD ORDERABLES Fin al Result Performing Organization Address City/[facility]/ZIP Co de Phone Number [facility] [address] [place] [phone] * (ABNORMAL) Vitamin B12/Folate, Serum Panel (06/30/2024 10:05 AM EST) Pathologist [facility] Vitamin B12 1,203(H) 200 - 900 pg/mL [facility] Comment:NORMAL 200-900 PG/ML INDETERMINATE 160-199 PG/ML DEFICIENT < 160 PG/ML Folate 7.2 > or = 4.0 ng/mL [facility] Comment:Reference Values:> o r = 4.0 ng/mL< 4.0 ng/mL suggests folate deficiency Methotrexate, aminopterin and folinic acid(leucovorin) are chemotherapeutic agents whose molecularstructures are similar to folate; therefore, the Architectfolate assay cannot be used for patients using these drugs. Blood Venous blood specimen / Unknown 06/30/2024 10:05 AM EST 06/30/2024 11:51 AM EST Joan Barreto MD LAB BLOOD ORDERABLES Fin al Result Performing Organization Address [facility] Co de Phone Number [facility] [address] [place] [phone] * T-SPOT??.TB (06/30/2024 10:05 AM EST) Pathologist [facility] T Spot TB Negative Negative [facility] Comment:A negative test resu lt does not exclude the possibilityof exposure to or infection with Mycobacteriumtuberculosis (M. tuberculosis). Patients with recentexposure to TB infected individuals exhibiting anegative T-SPOT.TB result should be considered forretesting within 6 weeks or if other relevant clinicalsymptoms indicate. Results from T-SPOT.TB testing mustbe used in conjunction with each individual'sepidemiological history, current medical status,and results of other diagnostic evaluations.The T-SPOT.TB test is qualitative and results arereported as positive, borderline, or negative, giventhat the test controls perform as expected. In linewith the Centers for Disease Control and Prevention's2010 recommendation to report quantitative measurementsalongside the qualitative result, the laboratoryprovides spot counts for informational purposes only.The T-SPOT.TB test should not be interpreted as aquantitative test. TS PANEL A 0 [facility] TS PANEL B 0 [facility] Negative Control Passed [facility] Positive Control Passed [facility] Comment:For additional infor matdom, please refer tohttp://education.[employer]/faq/FNT088(This link is being provided for informational/educational purposes only.)THIS TEST WAS PERFORMED AT:[employer] [id number] [place] [address]DUYVLRO W. MASON,MD,PHD 06/30/2024 10:0 5 AM EST 06/30/2024 11:51 AM EST us Joan Barreto MD LAB BLOOD ORDERABLES Fin al Result Performing Organization Address [facility]/ZIP Co de Phone Number [facility] [address] [place] [phone] * TSH with Reflex to Free T4 (06/30/2024 10:05 AM EST) TSH reflex Free T4 0.92 0.32 - 4.0 uIU/mL [facility] Blood 06/30/2024 10:0 5 AM EST 06/30/2024 11:51 AM EST us Joan Barreto MD LAB BLOOD ORDERABLES Fin al Result Performing Organization Address [facility]/ZIP Co de Phone Number [facility] [address] [place] [phone] * (ABNORMAL) Lipid Panel with Reflex to Direct LDL (06/30/2024 10:05 AM EST) Triglycerides 56 <150 mg/dL [facility] Comment:Desirable Triglyceri de: less than 150 mg/dLBorderline High Triglyceride 150-199 mg/dLHigh Triglyceride: 200-499 mg/dLVery High Triglyceride: greater than or equal to 5OO mg/dL Cholesterol 190 <200 mg/dL [facility] Comment:Desirable Cholestero l: less than 200 mg/dLBorderline High Cholesterol: 200-239 mg/dLHigh Cholesterol: greater than 239 mg/dL LDL Cholesterol Calculated 134(H) <100 mg/dL [facility] Comment:Desirable LDL: less than 100 mg/dLNear Optimal/Above Optimal LDL: 110- 129 mg/dLBorderline High LDL: 130-159 mg/dLHigh LDL: 160-189 mg/dLVery High LDL: greater than or equal to 190 mg/dL HDL Cholesterol 45 >40 mg/dL [facility] Comment:Desirable HDL: great er than 40 mg/dL Note: This HDL assay may give artificially low results in patients with liver disease. Blood 06/30/2024 10:0 5 AM EST 06/30/2024 11:51 AM EST us Joan Barreto MD LAB BLOOD ORDERABLES Fin al Result [facility] [address] [place] [phone] * Hepatitis Panel, General (06/30/2024 10:05 AM EST) Hepatitis A IgM Nonreactive Nonreactive [facility] Comment:IgM antibodies to LAWSON V not detected; does not exclude earlyacute or recovered HAV infection. ~Hepatitis B Surface Antibody REACTIVE Nonreactive [facility] Comment:REACTIVE: > 11.99 mI U/mL Hepatitis B Core Antibody Nonreactive Nonreactive [facility] Hepatitis C Antibody Nonreactive Nonreactive [facility] Comment:Antibodies to HCV no t detected; does not exclude early acuteHCV infection. Hepatitis B Surface Ag Negative Negative [facility] Blood 06/30/2024 10:0 5 AM EST 06/30/2024 11:51 AM EST us Joan Barreto MD LAB BLOOD ORDERABLES Fin al Result [facility] [address] [place] [phone] * (ABNORMAL) CBC auto differential (06/30/2024 10:05 AM EST) White Blood Count 9.1 4.8 - 10.8 X10*3/uL [facility] Red Blood Count 4.48(L) 4.60 - 5.80 X10*6/uL [facility] Hemoglobin 15.1 14.0 - 18.0 g/dl [facility] Hematocrit 41.8(L) 42.0 - 52.0 % [facility] Mean Corpuscular Volume 93.3 80.0 - 98.0 fL [facility] Mean Corpuscular Hemoglobin 33.7(H) 27.0 - 33.0 pg [facility] Mean Corpuscular HGB Conc 36.1(H) 31.0 - 36.0 g/dl [facility] Red Cell Distribution Width 12.7 11.0 - 16.0 % [facility] Platelet Count 251 160 - 400 X10*3/uL [facility] Mean Platelet Volume 9.6 9.4 - 12.4 fL [facility] Neutrophils Percent Auto 63.6 45 - 73 % [facility] Imm Gran Pct Auto 0.2 0.0 - 0.4 % [facility] Lymphocytes Percent Auto 26.2 20 - 40 % [facility] Monocytes Percent Auto 6.8 2 - 11 % [facility] Eosinophils Percent Auto 2.3 0 - 4 % [facility] Basophils Percent Auto 0.9 0 - 2 % [facility] NRBC Pct Auto 0.0 0.0 - 0.2 /100WBC [facility] Neutrophils Absolute Auto 5.8 2.0 - 8.3 x10*3/uL [facility] Imm Gran Abs Auto 0.02 0.00 - 0.03 X10*3/uL [facility] Lymphocytes Absolute Auto 2.4 1.2 - 4.9 X10*3/uL [facility] Monocytes Absolute Auto 0.6 0.1 - 1.2 X10*3/uL [facility] Eosinophils Absolute Auto 0.2 0.0 - 0.4 X10*3/uL [facility] Basophils Absolute Auto 0.1 0.0 - 0.2 X10*3/uL [facility] NRBC Abs Auto 0.000 0.0 - 0.012 X10*3/uL [facility] Blood Venous blood specimen / Unknown 06/30/2024 10:05 AM EST 06/30/2024 11:51 AM EST us Joan Barreto MD LAB BLOOD ORDERABLES Fin al Result [facility] [address] [place] [phone] * HIV-1/2 Antigen and Antibodies, Fourth Generation, with Reflexes (06/30/2024 10:05 AM EST) HIV AB/AG Nonreactive Nonreactive [facility] Comment:HIV-1 p24 Ag and/or HIV-1/HIV-2 Ab not detected.A test result that is nonreactive does not exclude thepossibility of exposure to or infection with HIV-1 and/orHIV-2. Nonreactive results in this assay for individualswith prior exposure to HIV-1 and/or HIV-2 may be due toantigen and antibody levels that are below the limit ofdetection of this assay.The iWant[employer] HIV Ag/Ab Combo assay result andsupplemental assay results should be interpreted inconjunction with the patient's clinical presentation,history and other laboratory results. If the results areinconsistent with clinical evidence, additional testing issuggested to confirm the result. Blood Venous blood specimen / Unknown 06/30/2024 10:05 AM EST 06/30/2024 11:51 AM EST us Joan Barreto MD LAB BLOOD ORDERABLES Fin al Result [facility] [address] [place] [phone] * (ABNORMAL) Comprehensive Metabolic Panel (06/30/2024 10:05 AM EST) Sodium 140 135 - 145 mmol/L [facility] Potassium 4.1 3.3 - 5.1 mmol/L [facility] Chloride 110(H) 96 - 108 mmol/L [facility] Carbon Dioxide 24 22 - 29 mmol/L [facility] Anion Gap 10(L) 12 - 20 [facility] Urea Nitrogen (BUN) 14 9 - 16 mg/dL [facility] Creatinine, Serum 0.90 0.5 - 1.4 mg/dL [facility] Estimated Glomerular Filt Rate >60 [facility] Comment:Chronic Kidney Disea se: Estimated GFR < 60 mL/min/1.59j7Hohleu Kidney Disease: Estimated GFR < 15 mL/min/1.73m2 Glucose 90 60 - 115 mg/dL [facility] Calcium 9.1 8.4 - 10.2 mg/dL [facility] Bilirubin, Total 0.7 0.0 - 1.0 mg/dL [facility] Aspartate Amino Transferase 31 5 - 37 U/L [facility] Alanine Aminotransferase 45(H) 0 - 40 U/L [facility] Total Protein 7.1 6.5 - 8.0 g/dL [facility] Albumin Level 4.2 3.5 - 5.0 g/dL [facility] Alkaline Phosphatase 122(H) 39 - 117 U/L [facility] Blood Venous blood specimen / Unknown 06/30/2024 10:05 AM EST 06/30/2024 11:51 AM EST us Joan Barreto MD LAB BLOOD ORDERABLES Fin al Result [facility] [address] [place] [phone] from Last 3 Months Insurance [facility] C3 Care Teams Clinical Programmer Relationship Specialty Start Date End Date Joan Barreto MD [address] [place] [phone] PCP - General Internal Medicine 06/30/24
[2024-09-28 17:55] LABS: Stone Source KIDSTS2564A
== END 2024-09-16 10:51 | disposition home or self-care (01) ==
LOC: HO.LNP 10:50
PROVIDERS: Visit Provider Urology
DX: N20.0 Calculus of kidney (principal)
CPT/HCPCS: 82365; 88300

== ENCOUNTER 2024-10-12 09:10 | Outpatient (REF) | payer MEDICAID, SELFPAY ==
--- NOTE | ~2024-10-12 | XR_ITS ---
EXAMINATION: XR ABDOMEN KUB CLINICAL INDICATION: N20.0 - Calculus of kidney COMPARISON: August 31, 2024. TECHNIQUE: AP view of the abdomen. FINDINGS: Multiple calcifications overlapping the left kidney shadow, there largest measures 1.7 cm. No intestinal obstruction pattern. Spina bifida occulta S1, congenital. XR/XR KUB IMPRESSION: Nephrolithiasis, left kidney. Overall multiple calculi likely fragmented from prior treatment. Electronically signed by: Jani White MD 10/12/2024 09:28 AM EDT
--- OUTSIDE RECORDS SUMMARY | 2024-10-12 09:57 | XMS_ITS | Encounter Summary ---
Author Organization [employer] Address [address] [place] [address] [address] [place] [address] Care Team Providers Care School Psychology Professor Name Role Phone Joan Barreto MD Primary Care Provider + Encounter Details Date Type Department Care Team (Late st Contact Info) Description 10/12/2024 Orders Only [facility] External Provider, [facility] Social History Tobacco Use Types Packs/Day Years Used Date Smoking Tobacco: Every Day Cigarettes 0.5 21.5 Started: 2003 Smokeless Tobacco: Never Alcohol Use [...] as of this encounter Plan of Treatment Not on file documented as of this encounter Procedures Procedure Name Priority Date/Time Associated Diagnosis Comments XR KUB AND UPRIGHT 2 VIEWS Routine 10/12/2024 9:15 AM EDT documented in this encounter Results * XR KUB and Upright 2 Views (10/12/2024 9:15 AM EDT) Anatomical Region Laterality Modality Radiographic Vicki ging 10/12/2024 9:15 AM EDT Narrative 10/12/2024 9:31 AM EDT [place] [address] XRay Report Signed Patient: Rm Velasco MR#: [id number] : 1985 Acct:[id number] Age/Sex: 39 / M ADM Date: 10/12/24 Loc: HO.XRAY Attending Dr: Jazmin Schwartz MD Ordering Physician: Jazmin Schwartz MD Date of Service: 10/12/24 Procedure(s): XR KUB Accession Number(s): [id number] cc: Jazmin Schwartz MD; Joan Barreto MD EXAMINATION: XR ABDOMEN KUB CLINICAL INDICATION: N20.0 - Calculus of kidney COMPARISON: August 31, 2024. TECHNIQUE: AP view of the abdomen. FINDINGS: Multiple calcifications overlapping the left kidney shadow, there largest measures 1.7 cm. No intestinal obstruction pattern. Spina bifida occulta S1, congenital. XR/XR KUB IMPRESSION: Nephrolithiasis, left kidney. Overall multiple calculi likely fragmented from prior treatment. Electronically signed by: Jani White MD 10/12/2024 09:28 AM EDT RP Dictated By: Jani Weaver MD Signed By: <Electronically signed by Jani De Jesus MD in OV> 10/12/24927 DD/ 4 TD/TT: 10/12/24919 Employment Law Attorney: Procedure Note Donotuseinterpreter, Image - 10/12/2024 [place] [address] XRay Report Signed Patient: Jayson Velasco#: [id number] : 1985Acct:[id number] Age/Sex: 39 / MADM Date: 10/12/24 Loc: HO.XRAY Attending Dr: Jazmin Schwartz MD Ordering Physician: Jazmin Schwartz MD Date of Service: 10/12/24 Procedure(s): XR KUB Accession Number(s): [id number] cc: Jazmin Schwartz MD; Joan Barreto MD EXAMINATION: XR ABDOMEN KUB CLINICAL INDICATION: N20.0 - Calculus of kidney COMPARISON: August 31, 2024. TECHNIQUE: AP view of the abdomen. FINDINGS: Multiple calcifications overlapping the left kidney shadow, there largest measures 1.7 cm. No intestinal obstruction pattern. Spina bifida occulta S1, congenital. XR/XR KUB IMPRESSION: Nephrolithiasis, left kidney. Overall multiple calculi likely fragmented from prior treatment. Electronically signed by: Jani White MD 10/12/2024 09:28 AM EDT RP Dictated By: Jani Weaver MD Signed By: <Electronically signed by Jani De Jesus MDin OV> 10/12/24927 DD/ 4 TD/TT: 10/12/24919 Employment Law Attorney: [facility] External Provider IMG XR PROCEDURES Edited Result - Final documented in this encounter Visit Diagnoses Not on filedocumented in this encounter Additional Health Concerns Assessment Noted Time PHQ-9 Depression Total Score: 0 09/10/19 11:25 AM EDT documented as of this encounter Care Teams School Psychology Professor Relationship Specialty Start Date End Date Joan Barreto MD [address] [place] [phone] PCP - General Internal Medicine 06/30/24 documented as of this encounter
== END 2024-10-12 09:11 | disposition home or self-care (01) ==
LOC: HO.XRAY 09:10
PROVIDERS: PCP Internal Medicine; Visit Provider Urology
DX: N20.0 Calculus of kidney (principal)
CPT/HCPCS: 74018

== ENCOUNTER → 2024-10-12 09:16 | Outpatient (BNV) | payer MEDICAID, SELFPAY | PROVIDERS: PCP Internal Medicine; Visit Provider Radiology Diagnostic Radiology | DX: N20.0 Calculus of kidney (principal) | CPT/HCPCS: 74018 ==

== ENCOUNTER 2024-10-14 14:44 | Outpatient (AMB) | payer MEDICAID, SELFPAY ==
--- NOTE | 2024-10-14 14:45 | MHC.OFFVIS ---
Intake Visit Reasons: ESWL, follow up/KUB/[facility] Intake Note: Patient is present for telehealth visit for KIDNEY STONES Urology Medication:NOne Antibiotic Allergy:NONE Blood Thinner:NONE Mall Manager Required: No Accompanied by: Self / Same As Patient Allergies No Known Allergies (No Known Allergies*) Allergy (Verified 10/14/24 14:46) HPI Comments Details: 10/14/24-- History of Present Illness - The patient is a 39-year-old male presenting with nephrolithiasis. - Underwent ESWL on 08/31/24 for kidney stones. - Post-procedure imaging showed reduced stone burden, with fragments passed during urination. - Stone analysis indicated calcium oxalate composition. Results - KUB imaging showed reduced stone burden post-ESWL. - Stone analysis confirmed calcium oxalate composition. Discussion Notes I discussed with the patient the current status of his nephrolithiasis, noting the reduction in stone burden observed on KUB imaging post-ESWL. We talked about the possibility of repeating lithotripsy to further break up the remaining stones. I explained that if significant stone burden remains, a ureteroscopic procedure might be necessary. We also reviewed the importance of completing a 24-hour urine collection to guide dietary modifications and potential nephrology referral if indicated. 04/28/24--Rod Abdalla is a 38 y/o male who was in the ED with left flank pain. CT imaging was notable for large left renal stone punctate right renal stones. The patient was discharged on Bactrim for empirical treatment of pyelonephritis. Today he states the pain is resolved. I have discussed treatment options for kidney stones including ureteroscopy with laser lithotripsy, percutaneous nephrolithotomy and ESWL. Because the stone is large ESWL will be a stage procedure. The patient is here with his mother, Anna Marie, they agreed to start with ESWL. Also discussed metabolic workup to include 24 hour urine collection. Discussed the importance of hydration, increasing water intake. CTAP 04/22/24-- b/L kidney stones PFSH Social History Patient Tobacco Use Status: Current everyday Tobacco user Cigarettes Per Day: 4 Review of Systems Const All systems reviewed & are unremarkable except as noted in HPI and below Reports no additional complaints Eyes Reports no additional complaints ENT Reports no additional complaints Card Reports no additional complaints Resp Reports no additional complaints GI Reports no additional complaints Reports as per HPI Musc Reports no additional complaints Skin/Breast Reports system reviewed and no additional complaints, except as documented Neuro Reports no additional complaints Psych Reports no additional complaints Endo Reports no additional complaints Nick/Lymph Reports no additional complaints Aller/Immun Reports no additional complaints Telehealth Telehealth Telehealth Platform: [employer] Location of provider rendering services: practice address Location of patient: address on file Patient Identification confirmed using: Name, : Yes Telehealth method: video Patient verbally consented to treatment: Yes Patient verbally consented to billing insurance company: Yes Patient informed of any privacy concerns related to visit: Yes Results Reviewed Results Reviewed: OLL: 09/16/24-141 STATUS: COMP REQ : [id number] RECD: 09/21/[address]: Jazmin Schwartz MD COMP: 09/28/24 ENTERED: 09/21/24-[address]: ORDERED: Kidney Stone QUERIES: Kidney Stone Source: [id number] Test Result Flag Reference Component 1 SEE NOTE Calcium Oxalate Dihydrate (Weddellite) 15% Calcium Oxalate Monohydrate (Whewellite) 70% Carbonate Apatite (Dahllite) 15% Stone Weight 0.020 g Formalin, surgical gel, tape adhesive or transport media interfere with the analytical procedure. Follow up testing with the UroRisk(R) Panel is suggested for affected samples, if clinically indicated. This test was developed and its analytical performance characteristics have been determined by [facility]. It has not been cleared or approved by the FDA. This assay has been validated pursuant to the CLIA regulations and is used for clinical purposes. THIS TEST WAS PERFORMED AT: [facility] Date of Service: 04/22/24 CT ABDOMEN AND PELVIS WITHOUT CONTRAST CLINICAL INFORMATION: Left flank pain. COMPARISON: None available. TECHNIQUE: Multidetector volumetric imaging was performed from the superior aspect of the liver through the pubic symphysis. Sagittal and coronal reformatted images were obtained on the technologist's workstation. This CT examination was performed using dose optimization techniques as appropriate, variously including the following: *Automated exposure control *Adjustment of mA and/or kV according to patient size (this includes techniques or standardized protocols for targeted exams where dose is matched to indication/reason for exam; i.e. extremities or head) *Use of iterative reconstruction technique DLP: 429 mGy-cm FINDINGS: LUNG BASES: -Lung bases are clear bilaterally. No effusions. -Heart size is normal. -GE junction is normal. LIVER, GALLBLADDER, AND BILIARY TREE: The liver is normal in size, shape, and attenuation. No focal hepatic lesion or biliary ductal dilatation is present. The gallbladder is unremarkable with no evidence of radiopaque gallstones, gallbladder wall thickening, or obvious pericholecystic inflammatory changes. PANCREAS: Unremarkable. SPLEEN: Unremarkable. ADRENAL GLANDS: Unremarkable. KIDNEYS AND URETERS: -Right Kidney: There are 3 nonobstructing tiny 2-3 mm calculi in the mid to inferior pole. There is no hydronephrosis or mass. There is a cyst in the upper pole measuring 1.8 cm. Hyperattenuating renal pyramids may suggest medullary nephrocalcinosis. -Left Kidney: There are 2 large calculi within the left mid to inferior left kidney, both oval in shape. The more anteroinferior measures 1.4 x 1.0 cm coronal plane, the more superolateral posterior measures 1.6 x 1.2 cm coronal plane. There is minimal calyceal dilatation/minimal hydronephrosis. Hyperattenuating renal pyramids may suggest medullary nephrocalcinosis. Ureters: Nondilated and normal in course and caliber. No obstructing abnormalities. BLADDER: Somewhat decompressed but normal in appearance. GASTROINTESTINAL TRACT: The stomach, duodenum, and small bowel are normal in appearance. The appendix is unremarkable. There is mild diverticulosis of the sigmoid colon. Colon is otherwise normal. No rectal abnormality. ABDOMINAL WALL: -No significant hernia is appreciated. -No masses or abnormal lymph nodes. LYMPH NODES: Normal. VASCULAR: Unremarkable. PELVIC VISCERA: Unremarkable. OSSEOUS STRUCTURES: -No suspicious lytic or blastic bone lesions. No acute findings. IMPRESSION: 1. There are 2 large possibly minimally obstructing calculi in the left mid to lower kidney calyces, larger more superolateral in the kidney measuring 1.6 x 1.2 cm, and the smaller anterolateral inferior measuring 1.4 x 1.0 cm. There is minimal dilatation of the left renal calyces without gross hydronephrosis. 2. There are 3 nonobstructing calculi in the right kidney mid to inferior pole, measuring 3 mm maximally. 3. Echogenic renal pyramids bilaterally Assessment & Plan Assessment & Plan (1) Bilateral kidney stones: Code(s): N20.0 - Calculus of kidney Category: Medical Plan Plan - Repeat shock wave lithotripsy Left kidney stone, to further reduce stone burden. - Plan ureteroscopic intervention if significant stone burden persists. - Complete 24-hour urine collection for stone risk assessment and dietary guidance. Patient Instructions: The patient had an opportunity to ask questions regarding treatment plan. The patient expressed understanding and agreement with the above treatment plan. The patient is aware they should contact our office by phone for worsening of their current condition or the appearance of new symptoms. Compliance is encouraged with any medications and followup testing that is ordered. It is a privilege to be allowed the opportunity to participate in the urologic care of your patient. If you have any questions or concerns regarding treatment for the above conditions please do not hesitate to contact me. The office telephone contact is [phone]. This note is constructed in part using voice recognition software. While every effort has been made to ensure accuracy farm machinery set up mechanic errors may have been included. Yours sincerely, Jazmin Schwartz MD Scribe Plan - Not visible on output: Patient was informed and verbally consented to the use of an ambient scribe for clinic note documentation during this visit. Coding Level of Care Code [facility] (31994) Diagnoses Bilateral kidney stones N20.0 Comment
== END 2024-10-14 16:12 | disposition home or self-care (01) ==
LOC: HO.HUSH 14:44
PROVIDERS: PCP Internal Medicine; Visit Provider Urology
DX: N20.0 Calculus of kidney (principal)
CPT/HCPCS: 99024

== ENCOUNTER 2024-11-30 07:47 | Day surgery (SDC) | payer MEDICAID, SELFPAY ==
--- OUTSIDE RECORDS SUMMARY | 2024-11-15 13:01 | XMS_ITS | Clinical Summary ---
Author Organization [facility] Address [address] [place] [address] Care Team Providers Care Securities Underwriter Name Role Phone Joan Barreto MD Primary [...] Encounters Date Type Department Care Team Description 10/12/2024 Orders Only [facility] External Provider, [facility] 09/09/2024 11:30 AM EDT Office Visit [facility] [address] [place] [address] Joan Barreto MD 09/09/2024 Travel 09/08/[address] [facility] [address] [place] [address] Joan Barreto MD chart prep 08/31/2024 Orders Only [facility] External Provider, [facility] from Last 3 Months Immunizations Immunization Administration [...] Date Smoking Tobacco: Every Day Cigarettes 0.5 21.6 Started: 2003 Smokeless Tobacco: Never Tobacco Cessation:Ready [...] 70 09/09/2024 11:24 AM EDT Temperature 36.6 C (97.8 F) 09/09/2024 11:24 AM EDT Respiratory Rate 16 09/09/2024 11:24 AM EDT Oxygen Saturation 98% 09/09/2024 11:24 AM EDT Inhaled Oxygen Concentration - - Weight 67.6 kg (149 lb) 09/09/2024 11:24 AM EDT Height 172.7 cm (5' 8 ) 09/09/2024 11:24 AM EDT Body Mass Index 22.66 09/09/2024 11:24 AM EDT Plan of Treatment Health Maintenance Due Date Last Done Comments Family Planning (PISQ) 2001 HPV Vaccines (1 - 3-dose series) 2001 Hepatitis A Vaccines (1 of 2 - Risk 2-dose series) 2005 Hepatitis B Vaccines (1 of 3 - 19+ 3-dose series) 2005 Pneumococcal Vaccine: Pediatrics (0 to 5 Years) and At-Risk Patients (6 to 49) Years (1 of 2 - PCV) 2005 COVID-19 Vaccine (2023-2 5 season) 2023 12/19/2021, 01/09/2021, 12/19/2020 Influenza Vaccine (#1) 2024 04/23/2020 SDOH Screening 06/30/2025 06/30/2024 Alcohol/Substance Use [...] 2 VIEWS Routine 10/12/2024 9:15 AM EDT XR KUB AND UPRIGHT 2 VIEWS Routine 08/31/2024 8:00 AM EDT HEPATITIS PANEL, GENERAL Routine 06/30/2024 10:05 AM EST Panic disorder with agoraphobia HIV 1/2 ANTIGEN/ANTIBODY, FOURTH GENERATION W/RFL Routine 06/30/2024 10:05 AM EST Generalized anxiety disorder Panic disorder with agoraphobia LIPID PANEL WITH REFLEX TO DIRECT LDL Routine 06/30/2024 10:05 AM EST Elevated blood pressure reading from Last 3 Months or Most Recently Relevant to Health Maintenance Results * XR KUB and Upright 2 Views (10/12/2024 9:15 AM EDT) Only the most recent of2 resultswithin the time period is included. Anatomical Region Laterality Modality Radiographic Vicki ging 10/12/2024 9:15 AM EDT Narrative 10/12/2024 9:[address] [address] [place] Report Signed Patient: Rm Velasco MR#: [id number] : 1985 Acct:[id number] Age/Sex: 39 / M ADM Date: 10/12/24 Loc: [facility] Attending Dr: Jazmin Schwartz MD Ordering Physician: Jazmin Schwartz MD Date of Service: 10/12/24 Procedure(s): XR KUB Accession Number(s): [id number] cc: Jazmin Schwartz MD; Joan Barreto MD [...] in OV> 10/12/24927 DD/ 4 TD/TT: 10/12/24919 Energy Crop Farmer: Procedure Note Donotuseinterpreter, Image - 10/12/2024 [place] [address] XRay Report Signed Patient: Jayson Velasco#: [id number] : 1985Acct:[id number] Age/Sex: 39 / MADM Date: 10/12/24 Loc: [facility] Attending Dr: Jazmin Schwartz MD Ordering Physician: Jazmin Schwartz MD Date of Service: 10/12/24 Procedure(s): XR KUB Accession Number(s): [id number] cc: Jazmin Schwartz MD; Joan Barreto MD [...] MDin OV> 10/12/24927 DD/ 4 TD/TT: 10/12/24919 Energy Crop Farmer: us [facility] External Provider IMG XR PROCEDURES Edited Result - Final * (ABNORMAL) Lipid Panel with Reflex to Direct LDL (06/30/2024 10:05 AM EST) Triglycerides 56 <150 mg/dL [facility] Comment:Desirable Triglyceri de: less than 150 mg/dLBorderline High Triglyceride 150-199 mg/dLHigh Triglyceride: 200-499 mg/dLVery High Triglyceride: greater than or equal to 5OO mg/dL Cholesterol 190 <200 mg/dL [facility] Comment:Desirable Cholestero l: less than 200 mg/dLBorderline High Cholesterol: 200-239 mg/dLHigh Cholesterol: greater than 239 mg/dL LDL Cholesterol Calculated 134(H) <100 mg/dL [facility] Comment:Desirable LDL: less than 100 mg/dLNear Optimal/Above Optimal LDL: 110- 129 mg/dLBorderline High LDL: 130-159 mg/dLHigh LDL: 160-189 mg/dLVery High LDL: greater than or equal to 190 mg/dL HDL Cholesterol 45 >40 mg/dL [facility] Comment:Desirable HDL: great er than 40 mg/dL Note: This HDL assay may give artificially low results in patients with liver disease. Blood 06/30/2024 10:0 5 AM EST 06/30/2024 11:51 AM EST Joan Barreto MD LAB BLOOD ORDERABLES Fin al Result [facility] [address] [place] [phone] * Hepatitis Panel, General (06/30/2024 10:05 AM EST) Hepatitis A IgM Nonreactive Nonreactive [facility] Comment:IgM antibodies to LAWSON V not detected; does not exclude earlyacute or recovered HAV infection. ~Hepatitis B Surface Antibody REACTIVE Nonreactive [facility] Comment:REACTIVE: > 11.99 mI U/mL Hepatitis B Core Antibody Nonreactive Nonreactive [facility] Hepatitis C Antibody Nonreactive Nonreactive [facility] Comment:Antibodies to HCV no t detected; does not exclude early acuteHCV infection. Hepatitis B Surface Ag Negative Negative [facility] Blood 06/30/2024 10:0 5 AM EST 06/30/2024 11:51 AM EST us Joan Barreto MD LAB BLOOD ORDERABLES Fin al Result Performing Organization Address City/[facility] Co de Phone Number [facility] [address] [place] [address] [phone] * HIV-1/2 Antigen and Antibodies, Fourth Generation, with Reflexes (06/30/2024 10:05 AM EST) [facility] HIV AB/AG Nonreactive Nonreactive [facility] Comment:HIV-1 p24 Ag and/or HIV-1/HIV-2 Ab not detected.A test result that is nonreactive does not exclude thepossibility of exposure to or infection with HIV-1 and/orHIV-2. Nonreactive results in this assay for individualswith prior exposure to HIV-1 and/or HIV-2 may be due toantigen and antibody levels that are below the limit ofdetection of this assay.The OneMobniNanoVasc HIV Ag/Ab Combo assay result andsupplemental assay results should be interpreted inconjunction with the patient's clinical presentation,history and other laboratory results. If the results areinconsistent with clinical evidence, additional testing issuggested to confirm the result. Blood Venous blood specimen / Unknown 06/30/2024 10:05 AM EST 06/30/2024 11:51 AM EST us Joan Barreto MD LAB BLOOD ORDERABLES Fin al Result Performing Organization Address [facility] Co de Phone Number [facility] [address] [place] [address] [phone] from Last 3 Months or Most Recently Relevant to Health Maintenance Insurance [facility] [id number] [place] [address] Care Teams Securities Underwriter Relationship Specialty Start Date End Date Joan Barreto MD [address] [place] [phone] PCP - General Internal Medicine 06/30/24
[2024-11-28 14:11] VITALS: BMI 22.7
--- NOTE | 2024-11-29 09:18 | HO.ANESPROP2 ---
Documented by User: Vandana Concepcion NP 11/29/24 09:19 HPI - Anesthesia Eval Consult details Narrative: 39yo M for Left Lithotripsy ESW s/p same 08/2024 with [facility] Active Problems Active Problems: All Active Problems Bilateral kidney stones (Acute) Past Medical History Medical History (Updated 11/28/24 @ 14:11 by Calli Blackwood RN) Calculus of kidney Family History Family history of problems with anesthesia: No Surgical History Surgical History (Updated 11/28/24 @ 14:09 by Calli Blackwood RN) Hx of lithotripsy History of Problems with Anesthesia: No Social History Social History Patient Tobacco Use Status: Current everyday Tobacco user Cigarettes Per Day: 4 Use of substances other than those prescribed or required for medical reasons: Yes Advance Directives: No Advance Directives Information Provided: Yes Meds Allergies Allergy/AdvReac Type Severity Reaction Status Date / Time No Known Allergies (No Known Allergy Verified 10/14/24 14:46 Allergies*) Home Medications ?Medication ?Instructions ?Recorded ?Confirmed ?Last Taken ?Type No Known Home Meds 11/28/24 11/28/24 Unknown History Exam Height,Weight and Vital Signs: Height 5 ft 8 in Weight 67.6 kg Assessment and Plan Assessment Anesthesia Assessment: Chart Reviewed Final Anesthetic Review Family History of Problems with Anesthesia: No History of Problems with Anesthesia: No Documented by User: Kalie Villanueva MD 11/30/24 09:24 PMFSH Past Medical History Medical History (Updated 11/28/24 @ 14:11 by Calli Blackwood RN) Calculus of kidney Surgical History Surgical History (Updated 11/28/24 @ 14:09 by Calli Blackwood RN) Hx of lithotripsy Social History Social History Patient Tobacco Use Status: Current everyday Tobacco user Cigarettes Per Day: 4 Use of substances other than those prescribed or required for medical reasons: Yes Advance Directives: No Advance Directives Information Provided: Yes Meds Allergies Allergy/AdvReac Type Severity Reaction Status Date / Time No Known Allergies (No Known Allergy Verified 10/14/24 14:46 Allergies*) Home Medications ?Medication ?Instructions ?Recorded ?Confirmed ?Last Taken ?Type No Known Home Meds 11/28/24 11/28/24 Unknown History Exam Airway Mallampati Class: I (edentulous) TM Dist: >3cm Neck ROM: Full Heart: rrr Lungs: cta Assessment and Plan Assessment Anesthesia Assessment: Anesthesia Plan Discussed Final Anesthetic Review NPO: Yes ASA Class: II Final Preanesthetic Review: No Changes in Pt Med Stat, Meds/Allgs Chart Reviewed and Consent Obtained/Reviewed Patient Risk: Low Procedure Risk: Low Anesthetic Plan Anesthetic Plan: GA Disposition: Standard PACU
--- NOTE | ~2024-11-30 | XR_ITS ---
EXAMINATION: XR ABDOMEN 1 VIEW (KUB) HISTORY: pre Left ESWL COMPARISON: Comparison is made with the prior examination dated 10/12/2024. FINDINGS: Two supine views of the abdomen are submitted. The bowel gas pattern is unremarkable, without evidence of mechanical obstruction. Again seen are multiple calcifications overlying the left renal shadow, the largest measuring up to 1.8 cm in size. There are phleboliths in the pelvis. There are no abnormal soft tissue masses. The bones are intact. XR/XR KUB IMPRESSION: Left nephrolithiasis as described. Electronically signed by: Varinder Madrigal MD 11/30/2024 08:38 AM EDT
[2024-11-30 08:12] VITALS: BMI 21.3
[2024-11-30 08:24] VITALS: BP 105/67; PULSE 63; RESP 16; TEMP 36.8; O2SAT 97
[2024-11-30] MEDS: Lactated Ringers 1,000 ML 100 ML IVCONT (08:26)
--- NOTE | 2024-11-30 09:54 | MHC.SHP ---
Pre-Procedural Eval Section A - 24 Hr Update-Section A only Date of Service: 11/30/24 The patient is an INPATIENT: No The patient has been examined within 24 hours of the surgical procedure. The History & Physical has been completed within 30 days and I have reviewed it.: Yes Section B - Complete if H&P > 30 days Chief Complaint: Calculus of kidney, left Allergies: Allergies Allergy/AdvReac Type Severity Reaction Status Date / Time No Known Allergies (No Known Allergy Verified 10/14/24 14:46 Allergies*) Plan Diagnosis/Plan: Unchanged I have reviewed the history and physical and performed a pertinent physical examination on my patient. No changes have occurred unless specified. Left ESWL. Discussed risks to include but not limited to, blood in the urine, bruising to the skin, kidney hematoma, possible need for another procedure if a stone fragment obstructs the ureter while passing, possible need to repeat procedure if stone is not completely fragmented. Time Spent With Patient Time: Total time managing care of this patient today ____ minutes.
--- NOTE | 2024-11-30 09:54 | W.PM.OPN ---
Operative Note Operative Note Date of Service: 11/30/24 Narrative: PreOperative Diagnosis:? ? Left Renal stone Post Operative Diagnosis:?Left? Renal stone Procedure:?Left? ESWL Surgeon:?Dr Jazmin Schwartz Anesthesia:? General Indications for procedure: The patient understands there is a risk of bruising or hematoma to the kidney, infection, and stone migration following the procedure and subsequent intervention may be required.? - Imaging stones left kidey- largest 16 mm x 8 mm. Procedure: After informed consent was verified the patient was brought to the operating room and placed in a supine position.? Anesthesia was performed per protocol. Safety pause time-out was performed. Imaging was displayed in the room and laterality confirmed. ESWL was performed.?The stone was visualized on both fluoroscopy and ultrasound.? Shockwave lithotripsy was performed, with a maximum rate of 120 hertz. After the first 300 shocks a pause for 3 minutes was completed.?At 1500 shocks, rate was reduced to 60 Hertz and power increased up to 20. A total of 2500 shocks. Some fragmentation of the stone was appreciated. The patient tolerated the procedure well and was transferred to the recovery area upon completion. Complications: None
[2024-11-30 10:55] VITALS: BP 108/64; PULSE 87; TEMP 36.5; O2SAT 94
[2024-11-30 11:00] VITALS: BP 117/77; PULSE 72; RESP 18; O2SAT 99
[2024-11-30 11:05] VITALS: PULSE 70; RESP 18; O2SAT 97
[2024-11-30 11:10] VITALS: BP 118/72; PULSE 66; RESP 18; O2SAT 96
[2024-11-30 11:24] VITALS: BP 115/80; PULSE 64; RESP 18; TEMP 36.3; O2SAT 98
== END 2024-11-30 11:48 | disposition home or self-care (01) ==
PROVIDERS: PCP Internal Medicine; Visit Provider Urology
PROC: (CPT 50590; principal; 2024-11-30 09:50)
DX: N20.0 Calculus of kidney (principal); Z87.442 Personal history of urinary calculi; F17.210 Nicotine dependence, cigarettes, uncomplicated
CPT/HCPCS: 50590; 74018; J0131; J0690; J1938; J2003; J2704; J3010

== ENCOUNTER → 2024-11-30 07:47 | Outpatient (BNV) | payer MEDICAID, SELFPAY | PROVIDERS: PCP Internal Medicine; Visit Provider Urology | DX: N20.0 Calculus of kidney (principal) | CPT/HCPCS: 50590 ==

== ENCOUNTER → 2024-11-30 08:00 | Outpatient (BNV) | payer MEDICAID, SELFPAY | PROVIDERS: PCP Internal Medicine; Visit Provider Radiology Diagnostic Radiology | DX: N20.0 Calculus of kidney (principal) | CPT/HCPCS: 74018 ==